=== PATIENT | male | born 1940 | race Caucasian/White ===

== ENCOUNTER → 2016-12-04 | Outpatient (CLI) | payer MEDICARE ==
[~2016-12-04] MED LIST: ALLE180T33 PO; AMIO20TA PO; ASPI81TA85 PO; BUPR100T6 PO; BUPR150T3 PO; BUPR300T34 PO; CEPH500C PO; ELIQ5TAB PO; FLEEENE4 PR; INDO75CA PO; KETO0.4S OS; LACT20EL PO; LIPI20TA PO; LISI5TAB PO; LOPR50TA PO; LOSA100T36 PO; MAG400TA PO; MAGN400T5 PO; MILKSUS PO; MIRA3350 PO; MUPI2OI EXT; NORC5TAB PO; NYST50SS SS; OCUVTAB4 PO; OMEP20CA3 PO; OMEP40CA2 PO; PACE400T PO; PREDOPD OS; SENO8.6T2 PO; SING5CHW PO; TRIA55SP; TYLE325T5 PO; ULTR50TA PO; VICO5TAB16 PO; VITA100037 PO; VITA200038 PO; VITA250L PO; VITA500T3 PO; XARE20TA PO; ZITH250T PO; ZOFR20TA PO
[2016-12-04 18:37] LABS: ALBUMIN 3.7 GM/DL (3.2-5.2); ALBUMIN/GLOBULIN RATIO 0.93 (1.00-1.93); ALKALINE PHOSPHATASE 97 U/L (45-117); ALT/SGPT 17 U/L (12-78); ANION GAP 10 MEQ/L (8-16); AST/SGOT 19 U/L (15-37); BILIRUBIN,TOTAL 1.3 MG/DL (0.2-1.0); BLOOD UREA NITROGEN 11 MG/DL (7-18); CALCIUM LEVEL 9.2 MG/DL (8.8-10.2); CARBON DIOXIDE LEVEL 29 MEQ/L (21-32); CHLORIDE LEVEL 106 MEQ/L (98-107); CHOLESTEROL LEVEL 132 MG/DL (<200); CREATININE FOR GFR 1.12 MG/DL (0.70-1.30); GLOMERULAR FILTRATION RATE > 60.0 (>42); GLUCOSE, FASTING 111 MG/DL (83-110); POTASSIUM SERUM 4.8 MEQ/L (3.5-5.1); SODIUM LEVEL 145 MEQ/L (136-145); TOTAL PROTEIN 7.7 GM/DL (6.4-8.2); TRIGLYCERIDES LEVEL 69 MG/DL (<150); URIC ACID 7.3 MG/DL (3.5-7.2)
== END ==
LOC: M WUC 11:14
PROVIDERS: ATTEND Internal Medicine
DX: M10.9 Gout, unspecified (principal); E78.00 Pure hypercholesterolemia, unspecified

== ENCOUNTER → 2016-12-04 | Outpatient (CLI) | payer MEDICARE ==
[2016-12-04 18:30] LABS: BASO % 0.4 % (0.0-1.0); EOS # 0.1 K/mm3 (0.0-0.50); EOS % 1.3 % (0.0-3.0); LARGE UNSTAINED CELL # 0.3 K/mm3 (0.0-0.4); LARGE UNSTAINED CELL % 3.7 % (0.0-4.0); LYMPH # 2.3 K/mm3 (1.5-4.5); LYMPH % 30.7 % (24.0-44.0); MEAN CORPUSCULAR HEMOGLOBIN 31.2 pg (27.0-33.0); MEAN CORPUSCULAR HGB CONC 33.7 g/dl (32.0-36.5); MEAN CORPUSCULAR VOLUME 92.7 fl (80.0-96.0); MONO # 0.5 K/mm3 (0.0-0.8); MONO % 7.6 % (0.0-5.0); NEUTROPHILS # 3.8 K/mm3 (1.8-7.7); NEUTROPHILS % 56.3 % (36.0-66.0); PLATELET COUNT, AUTOMATED 173 k/mm3 (150-450); RED CELL DISTRIBUTION WIDTH 13.2 % (11.5-14.5); WHITE BLOOD COUNT 6.7 K/mm3 (4.0-10.0)
[2016-12-04 18:34] LABS: ALBUMIN 3.6 GM/DL (3.2-5.2); ALKALINE PHOSPHATASE 94 U/L (45-117); ALT/SGPT 17 U/L (12-78); ANION GAP 12 MEQ/L (8-16); AST/SGOT 20 U/L (15-37); BILIRUBIN,TOTAL 1.2 MG/DL (0.2-1.0); BLOOD UREA NITROGEN 11 MG/DL (7-18); CARBON DIOXIDE LEVEL 27 MEQ/L (21-32); CHLORIDE LEVEL 106 MEQ/L (98-107); CREATININE FOR GFR 1.09 MG/DL (0.70-1.30); GLOMERULAR FILTRATION RATE > 60.0 (>42); GLUCOSE, FASTING 109 MG/DL (83-110); POTASSIUM SERUM 4.2 MEQ/L (3.5-5.1); SODIUM LEVEL 145 MEQ/L (136-145); TOTAL PROTEIN 7.6 GM/DL (6.4-8.2)
[2016-12-06 12:00] LABS: ALBUMIN 3.88 GM/DL (3.29-5.55); GAMMA GLOBULIN % 22.2 % (11.1-18.8)
[2016-12-07 00:10] LABS: FREE KAPPA LIGHT CHAINS SERUM 16.66 mg/L (3.30-19.40); FREE LAMBDA LIGHT CHAINS SERUM 79.63 mg/L (5.71-26.30); KAPPA/LAMBDA RATIO SERUM 0.21 (0.26-1.65)
== END ==
LOC: M WUC 11:20
PROVIDERS: ATTEND Internal Medicine Medical Oncology
DX: M10.9 Gout, unspecified (principal); E78.00 Pure hypercholesterolemia, unspecified; Z85.828 Personal history of other malignant neoplasm of skin

== ENCOUNTER → 2016-12-21 | Outpatient (CLI) | payer MEDICARE ==
[~2016-12-21] MED LIST changes: +NORC1TAB4 PO; -NORC5TAB PO
--- NOTE | 2016-12-21 14:10 | REP ---
Clinical: Chest pain . Comparison: 10/26/2015 . Technique: PA and lateral. Findings: The mediastinum and cardiac silhouette are normal/stable. Calcified hilar lymph nodes noted. The lung hernandez are clear and without acute consolidation, effusion, or pneumothorax. The skeletal structures are intact and normal. Impression: 1. No acute cardiopulmonary process. Signed by Christian Whitlock MD 12/21/2016 02:01 P
--- NOTE | 2016-12-21 15:26 | REP ---
VENTILATION-PERFUSION LUNG SCAN: 12/21/2016 CLINICAL HISTORY: Dyspnea, evaluate for pulmonary emboli. COMPARISON: Chest x-ray 12/21/2016, 10/26/2015 CT chest 02/04/2009. TECHNIQUE: The patient received 1 mCi technetium 99m DTPA aerosol for ventilation followed by 5.2 mCi technetium 99m MAA via an IV for perfusion phases of imaging. The standard eight projections for each were obtained. FINDINGS: The anterior and posterior perfusion images conform to the size and shape of the lungs on chest x-ray. There are some small matched defects in the parenchyma bilaterally with the ventilation defect larger than the perfusion defect in every case. No mismatched defects. Some central tracer deposition in the ventilation phase images consistent with COPD is noted. No other findings. IMPRESSION: 1. Using revised PIOPED lung scan interpretation criteria, this study is low probability for pulmonary thromboembolism. Signed by Franklin Ford MD 12/21/2016 08:14 P
== END ==
LOC: M RAD 13:32
PROVIDERS: ATTEND Internal Medicine Pulmonary Disease
DX: I26.99 Other pulmonary embolism without acute cor pulmonale (principal)
CPT/HCPCS: 71020; 78582; A9540; A9567

== ENCOUNTER → 2017-03-25 | Outpatient (REF) | payer MEDICARE ==
[~2017-03-25] MED LIST changes: -SENO8.6T2 PO; +SENO8.6T5 PO; -ULTR50TA PO; +ULTR50TA8 PO
[2017-03-25 19:29] LABS: MEAN CORPUSCULAR HEMOGLOBIN 33.2 pg (27.0-33.0); MEAN CORPUSCULAR HGB CONC 34.6 g/dl (32.0-36.5); RED CELL DISTRIBUTION WIDTH 12.8 % (11.5-14.5)
[2017-03-25 21:28] LABS: ALBUMIN 3.9 GM/DL (3.2-5.2); ALBUMIN/GLOBULIN RATIO 0.95 (1.00-1.93); ALKALINE PHOSPHATASE 91 U/L (45-117); ALT/SGPT 26 U/L (12-78); ANION GAP 9 MEQ/L (8-16); AST/SGOT 28 U/L (15-37); BILIRUBIN,TOTAL 1.3 MG/DL (0.2-1.0); BLOOD UREA NITROGEN 12 MG/DL (7-18); CALCIUM LEVEL 9.5 MG/DL (8.8-10.2); CARBON DIOXIDE LEVEL 28 MEQ/L (21-32); CHLORIDE LEVEL 105 MEQ/L (98-107); GLOMERULAR FILTRATION RATE > 60.0 (>42); GLUCOSE, FASTING 83 MG/DL (83-110); SODIUM LEVEL 142 MEQ/L (136-145); URIC ACID 7.3 MG/DL (3.5-7.2)
== END ==
LOC: M SFHCPLAZ 14:59
PROVIDERS: ATTEND Internal Medicine
DX: R06.09 Other forms of dyspnea (principal); I48.2 Chronic atrial fibrillation; R73.01 Impaired fasting glucose; R23.2 Flushing; M10.9 Gout, unspecified; Z85.46 Personal history of malignant neoplasm of prostate
CPT/HCPCS: 36415; 80053; 83036; 84153; 84443; 84550; 85027; 90715; G0463

== ENCOUNTER → 2017-10-04 | Outpatient (CLI) | payer MEDICARE ==
[2017-10-04 11:43] LABS: HEMATOCRIT 48.9 % (42.0-52.0); HEMOGLOBIN 16.6 g/dl (14.0-18.0); MEAN CORPUSCULAR HEMOGLOBIN 31.5 pg (27.0-33.0); MEAN CORPUSCULAR HGB CONC 33.9 g/dl (32.0-36.5); MEAN CORPUSCULAR VOLUME 92.8 fl (80.0-96.0); PLATELET COUNT, AUTOMATED 184 10^3/uL (150-450); RED BLOOD COUNT 5.27 10^6/uL (4.30-6.10); RED CELL DISTRIBUTION WIDTH 13.2 % (11.5-14.5); WHITE BLOOD COUNT 7.9 10^3/uL (4.0-10.0)
[2017-10-04 12:02] LABS: ALBUMIN 3.7 GM/DL (3.2-5.2); ALBUMIN/GLOBULIN RATIO 0.93 (1.00-1.93); ALKALINE PHOSPHATASE 84 U/L (45-117); ALT/SGPT 28 U/L (12-78); ANION GAP 5 MEQ/L (8-16); AST/SGOT 30 U/L (7-37); BILIRUBIN,TOTAL 1.3 MG/DL (0.2-1.0); BLOOD UREA NITROGEN 18 MG/DL (7-18); CALCIUM LEVEL 9.2 MG/DL (8.8-10.2); CARBON DIOXIDE LEVEL 32 MEQ/L (21-32); CHLORIDE LEVEL 105 MEQ/L (98-107); CHOLESTEROL LEVEL 172 MG/DL (<200); CHOLESTEROL RISK RATIO 3.127 (<5); CREATININE FOR GFR 1.25 MG/DL (0.70-1.30); GLOMERULAR FILTRATION RATE 59.5 (>42); GLUCOSE, FASTING 137 MG/DL (83-110); HDL CHOLESTEROL 55 MG/DL (>40); LDL CHOLESTEROL 99.8 MG/DL (<100); MAGNESIUM LEVEL 2.1 MG/DL (1.8-2.4); NON-HDL-C 117 MG/DL; POTASSIUM SERUM 4.9 MEQ/L (3.5-5.1); SODIUM LEVEL 142 MEQ/L (136-145); TOTAL PROTEIN 7.7 GM/DL (6.4-8.2); TRIGLYCERIDES LEVEL 86 MG/DL (<150); URIC ACID 8.3 MG/DL (3.5-7.2)
[2017-10-04 12:16] LABS: ESTIMATED AVERAGE GLUCOSE 128 MG/DL (60-110); HEMOGLOBIN A1c 6.1 %
== END ==
LOC: M WUC 09:43
DX: R06.09 Other forms of dyspnea (principal); R73.01 Impaired fasting glucose; E78.00 Pure hypercholesterolemia, unspecified; I48.2 Chronic atrial fibrillation; M10.9 Gout, unspecified
CPT/HCPCS: 83735

== ENCOUNTER → 2018-01-07 | Outpatient (REF) | payer MEDICARE | LOC: M LAB REF 12:08 | DX: D04.4 Carcinoma in situ of skin of scalp and neck (principal) | CPT/HCPCS: 88305 ==

== ENCOUNTER → 2018-01-29 | Outpatient (REF) | payer MEDICARE, OTHER ==
[2018-01-29 17:58] LABS: TOTAL PROTEIN 7.9 GM/DL (6.4-8.2)
[2018-01-30 10:25] LABS: ALBUMIN 4.16 GM/DL (3.29-5.55); ALBUMIN % 52.6 % (55.8-66.1); ALPHA-1-GLOBULIN % 3.6 % (2.9-4.9); ALPHA-1-GLOBULINS 0.28 GM/DL (0.17-0.41); ALPHA-2-GLOBULINS 0.96 GM/DL (0.42-0.99); ALPHA-2-GLOBULINS % 12.1 % (7.1-11.8); BETA-1-GLOBULINS 0.44 GM/DL (0.28-0.60); BETA-1-GLOBULINS % 5.6 % (4.7-7.2); GAMMA GLOBULIN % 21.1 % (11.1-18.8); GAMMA GLOBULINS 1.67 GM/DL (0.65-1.58)
[2018-02-01 00:06] LABS: FREE LAMBDA LIGHT CHAINS SERUM 83.2 mg/L (5.7-26.3); KAPPA/LAMBDA RATIO SERUM 0.18 (0.26-1.65)
[2018-02-01 00:06] LABS: BETA 2 MICROGLOBULIN 2.6 mg/L (0.6-2.4)
== END ==
LOC: M LAB REF 16:48
DX: D47.2 Monoclonal gammopathy (principal)
CPT/HCPCS: 84165

== ENCOUNTER → 2018-04-08 | Outpatient (CLI) | payer MEDICARE ==
[2018-04-08 17:08] LABS: HEMATOCRIT 49.7 % (42.0-52.0); HEMOGLOBIN 16.7 g/dl (13.5-17.5); MEAN CORPUSCULAR HEMOGLOBIN 32.1 pg (27.0-33.0); MEAN CORPUSCULAR HGB CONC 33.6 g/dl (32.0-36.5); MEAN CORPUSCULAR VOLUME 95.4 fl (80.0-96.0); PLATELET COUNT, AUTOMATED 184 10^3/uL (150-450); RED BLOOD COUNT 5.21 10^6/uL (4.30-6.10); RED CELL DISTRIBUTION WIDTH 13.4 % (11.5-14.5); WHITE BLOOD COUNT 7.6 10^3/uL (4.0-10.0)
[2018-04-08 17:34] LABS: ESTIMATED AVERAGE GLUCOSE 137 MG/DL (60-110); HEMOGLOBIN A1c 6.4 %
[2018-04-08 17:39] LABS: ALBUMIN 3.4 GM/DL (3.2-5.2); ALBUMIN/GLOBULIN RATIO 0.83 (1.00-1.93); ALKALINE PHOSPHATASE 80 U/L (45-117); ALT/SGPT 36 U/L (12-78); ANION GAP 9 MEQ/L (8-16); AST/SGOT 31 U/L (7-37); BILIRUBIN,TOTAL 1.2 MG/DL (0.2-1.0); BLOOD UREA NITROGEN 12 MG/DL (7-18); CALCIUM LEVEL 9.4 MG/DL (8.8-10.2); CARBON DIOXIDE LEVEL 28 MEQ/L (21-32); CHLORIDE LEVEL 106 MEQ/L (98-107); CHOLESTEROL LEVEL 164 MG/DL (<200); CHOLESTEROL RISK RATIO 2.779 (<5); CREATININE FOR GFR 1.25 MG/DL (0.70-1.30); GLOMERULAR FILTRATION RATE 59.3 (>42); GLUCOSE, FASTING 115 MG/DL (70-100); HDL CHOLESTEROL 59 MG/DL (>40); LDL CHOLESTEROL 89.6 MG/DL (<100); NON-HDL-C 105 MG/DL; POTASSIUM SERUM 4.4 MEQ/L (3.5-5.1); PROSTATIC SPECIFIC AG MONITOR < 0.01 NG/ML (< 4.0); SODIUM LEVEL 143 MEQ/L (136-145); TOTAL PROTEIN 7.5 GM/DL (6.4-8.2); TRIGLYCERIDES LEVEL 77 MG/DL (<150)
[2018-04-08 18:04] LABS: MAU/CREAT RATIO 6.8 MCG/MG (0.0-30.0)
[2018-04-09 12:36] LABS: ALBUMIN 4.02 GM/DL (3.29-5.55); ALBUMIN % 53.6 % (55.8-66.1); ALPHA-1-GLOBULIN % 3.6 % (2.9-4.9); ALPHA-1-GLOBULINS 0.27 GM/DL (0.17-0.41); ALPHA-2-GLOBULINS 0.89 GM/DL (0.42-0.99); ALPHA-2-GLOBULINS % 11.8 % (7.1-11.8); BETA-1-GLOBULINS 0.44 GM/DL (0.28-0.60); BETA-1-GLOBULINS % 5.9 % (4.7-7.2); BETA-2-GLOBULINS % 5.3 % (3.2-6.5); GAMMA GLOBULIN % 19.8 % (11.1-18.8); GAMMA GLOBULINS 1.49 GM/DL (0.65-1.58)
== END ==
LOC: M WUC 11:09
DX: D47.2 Monoclonal gammopathy (principal); Z85.46 Personal history of malignant neoplasm of prostate; E78.00 Pure hypercholesterolemia, unspecified; R73.01 Impaired fasting glucose; F34.1 Dysthymic disorder; I48.2 Chronic atrial fibrillation
CPT/HCPCS: 84165

== ENCOUNTER → 2018-10-03 | Outpatient (REF) | payer MEDICARE ==
[~2018-10-03] MED LIST changes: +COLC1TAB13; -LOSA100T36 PO; +LOSA100T50 PO; +MILK120011 PO; -MILKSUS PO; +RANI300C; +ZADI1DRO; -ZOFR20TA PO; +ZOFR4TAB16 PO
[2018-10-03 17:05] LABS: MALB URINE SIEMENS 30.9 MG/L; MAU/CREAT RATIO 14.4 MCG/MG (0.0-30.0)
[2018-10-03 17:48] LABS: HEMATOCRIT 50.4 % (42.0-52.0); HEMOGLOBIN 16.9 g/dl (13.5-17.5); MEAN CORPUSCULAR HEMOGLOBIN 31.6 pg (27.0-33.0); MEAN CORPUSCULAR HGB CONC 33.5 g/dl (32.0-36.5); MEAN CORPUSCULAR VOLUME 94.4 fl (80.0-96.0); PLATELET COUNT, AUTOMATED 181 10^3/uL (150-450); RED BLOOD COUNT 5.34 10^6/uL (4.30-6.10); WHITE BLOOD COUNT 6.9 10^3/uL (4.0-10.0)
[2018-10-03 17:54] LABS: ALBUMIN 3.5 GM/DL (3.2-5.2); ALT/SGPT 23 U/L (12-78); BILIRUBIN,TOTAL 0.9 MG/DL (0.2-1.0); BLOOD UREA NITROGEN 10 MG/DL (7-18); C REACTIVE PROTEIN QUANTITATIV 0.49 MG/DL (0.00-0.30); CALCIUM LEVEL 9.4 MG/DL (8.8-10.2); CARBON DIOXIDE LEVEL 29 MEQ/L (21-32); CHLORIDE LEVEL 105 MEQ/L (98-107); CHOLESTEROL LEVEL 160 MG/DL (<200); CREATININE FOR GFR 1.13 MG/DL (0.70-1.30); GLOMERULAR FILTRATION RATE > 60.0 (>42); GLUCOSE, FASTING 201 MG/DL (70-100); HDL CHOLESTEROL 50 MG/DL (>40); LDL CHOLESTEROL 85 MG/DL (<100); NON-HDL-C 110 MG/DL; POTASSIUM SERUM 4.4 MEQ/L (3.5-5.1); SODIUM LEVEL 142 MEQ/L (136-145); TOTAL PROTEIN 7.5 GM/DL (6.4-8.2); TRIGLYCERIDES LEVEL 126 MG/DL (<150); URIC ACID 7.1 MG/DL (3.5-7.2)
[2018-10-03 18:23] LABS: HEMOGLOBIN A1c 6.4 %
[2018-10-03 19:14] LABS: ERYTHROCYTE SEDIMENTATION RATE 7 mm/hr (0-20)
== END ==
LOC: M SFHCCLAY 10:42
PROVIDERS: ATTEND Internal Medicine
DX: D47.2 Monoclonal gammopathy (principal); Z86.718 Personal history of other venous thrombosis and embolism; M06.4 Inflammatory polyarthropathy; R73.01 Impaired fasting glucose; E78.00 Pure hypercholesterolemia, unspecified; M10.9 Gout, unspecified

== ENCOUNTER → 2018-11-04 | Outpatient (REF) | payer MEDICARE ==
[2018-11-04 16:45] LABS: BASO % 0.5 % (0.0-1.0); EOS # 0.1 10^3/uL (0.0-0.50); EOS % 1.7 % (0.0-3.0); HEMATOCRIT 51.7 % (42.0-52.0); HEMOGLOBIN 17.2 g/dl (13.5-17.5); LYMPH # 2.3 10^3/uL (1.5-4.5); LYMPH % 31.1 % (24.0-44.0); MEAN CORPUSCULAR HEMOGLOBIN 31.4 pg (27.0-33.0); MEAN CORPUSCULAR HGB CONC 33.3 g/dl (32.0-36.5); MEAN CORPUSCULAR VOLUME 94.3 fl (80.0-96.0); MONO # 0.8 10^3/uL (0.0-0.8); NEUTROPHILS # 4.2 10^3/uL (1.8-7.7); NEUTROPHILS % 56.3 % (36.0-66.0); PLATELET COUNT, AUTOMATED 182 10^3/uL (150-450); RED BLOOD COUNT 5.48 10^6/uL (4.30-6.10); WHITE BLOOD COUNT 7.5 10^3/uL (4.0-10.0)
[2018-11-04 16:49] LABS: BLOOD UREA NITROGEN 14 MG/DL (7-18); CALCIUM LEVEL 9.2 MG/DL (8.8-10.2); CARBON DIOXIDE LEVEL 31 MEQ/L (21-32); CHLORIDE LEVEL 103 MEQ/L (98-107); CREATININE FOR GFR 1.13 MG/DL (0.70-1.30); GLOMERULAR FILTRATION RATE > 60.0 (>42); GLUCOSE, FASTING 124 MG/DL (70-100); POTASSIUM SERUM 4.4 MEQ/L (3.5-5.1); SODIUM LEVEL 141 MEQ/L (136-145)
== END ==
LOC: M SFHCPLAZ 09:40 → M SFHCCLAY 09:42
PROVIDERS: ATTEND Internal Medicine
DX: Z01.818 Encounter for other preprocedural examination (principal)

== ENCOUNTER → 2019-01-27 | Outpatient (REF) | payer MEDICARE, OTHER ==
[~2019-01-27] MED LIST changes: +AMIO200T10 PO; -AMIO20TA PO; +ATOR1TAB21 PO; +LACT15SO PO; -LACT20EL PO; +MUPI1OIN2 EXT; -MUPI2OI EXT; -NORC1TAB4 PO; +NORC1TAB7 PO; -VICO5TAB16 PO; +VICO5TAB17 PO
[2019-01-27 17:58] LABS: HEMATOCRIT 51.3 % (42.0-52.0); HEMOGLOBIN 17.1 g/dl (13.5-17.5); MEAN CORPUSCULAR HEMOGLOBIN 31.3 pg (27.0-33.0); MEAN CORPUSCULAR HGB CONC 33.3 g/dl (32.0-36.5); PLATELET COUNT, AUTOMATED 201 10^3/uL (150-450); RED BLOOD COUNT 5.46 10^6/uL (4.30-6.10)
[2019-01-27 18:07] LABS: ALBUMIN 3.8 GM/DL (3.2-5.2); ALT/SGPT 27 U/L (12-78); BILIRUBIN,TOTAL 0.8 MG/DL (0.2-1.0); BLOOD UREA NITROGEN 21 MG/DL (7-18); CALCIUM LEVEL 9.5 MG/DL (8.8-10.2); CARBON DIOXIDE LEVEL 28 MEQ/L (21-32); CHLORIDE LEVEL 106 MEQ/L (98-107); CREATININE FOR GFR 1.32 MG/DL (0.70-1.30); GLOMERULAR FILTRATION RATE 55.7 (>42); GLUCOSE, FASTING 147 MG/DL (70-100); POTASSIUM SERUM 4.2 MEQ/L (3.5-5.1); SODIUM LEVEL 142 MEQ/L (136-145)
[2019-01-29 10:56] LABS: ALBUMIN 4.18 GM/DL (3.29-5.55); ALBUMIN % 52.3 % (55.8-66.1); ALPHA-1-GLOBULIN % 3.3 % (2.9-4.9); ALPHA-1-GLOBULINS 0.26 GM/DL (0.17-0.41); ALPHA-2-GLOBULINS 1.04 GM/DL (0.42-0.99); BETA-1-GLOBULINS 0.43 GM/DL (0.28-0.60); BETA-1-GLOBULINS % 5.4 % (4.7-7.2); BETA-2-GLOBULINS 0.43 GM/DL (0.19-0.55); BETA-2-GLOBULINS % 5.4 % (3.2-6.5); GAMMA GLOBULIN % 20.6 % (11.1-18.8); GAMMA GLOBULINS 1.65 GM/DL (0.65-1.58)
[2019-01-30 08:06] LABS: BETA 2 MICROGLOBULIN 2.1 mg/L (0.6-2.4); FREE LAMBDA LIGHT CHAINS SERUM 79.4 mg/L (5.7-26.3); KAPPA/LAMBDA RATIO SERUM 0.25 (0.26-1.65)
== END ==
LOC: M LABDRAWC 16:39
PROVIDERS: ATTEND Internal Medicine Medical Oncology
DX: Z79.899 Other long term (current) drug therapy (principal)

== ENCOUNTER → 2019-02-05 | Outpatient (REF) | payer MEDICARE ==
[2019-02-05 16:58] LABS: HEMATOCRIT 50.2 % (42.0-52.0); HEMOGLOBIN 16.9 g/dl (13.5-17.5); MEAN CORPUSCULAR HGB CONC 33.7 g/dl (32.0-36.5); MEAN CORPUSCULAR VOLUME 95.1 fl (80.0-96.0); PLATELET COUNT, AUTOMATED 198 10^3/uL (150-450); RED BLOOD COUNT 5.28 10^6/uL (4.30-6.10)
[2019-02-05 17:06] LABS: ALBUMIN 3.7 GM/DL (3.2-5.2); ALT/SGPT 26 U/L (12-78); BILIRUBIN,TOTAL 1.1 MG/DL (0.2-1.0); BLOOD UREA NITROGEN 14 MG/DL (7-18); CARBON DIOXIDE LEVEL 27 MEQ/L (21-32); CHLORIDE LEVEL 106 MEQ/L (98-107); CHOLESTEROL LEVEL 189 MG/DL (<200); CREATININE FOR GFR 1.19 MG/DL (0.70-1.30); GLOMERULAR FILTRATION RATE > 60.0 (>42); GLUCOSE, FASTING 126 MG/DL (70-100); HDL CHOLESTEROL 54 MG/DL (>40); LDL CHOLESTEROL 112 MG/DL (<100); NON-HDL-C 135 MG/DL; POTASSIUM SERUM 4.1 MEQ/L (3.5-5.1); PROSTATIC SPECIFIC AG MONITOR < 0.01 NG/ML (< 4.00); SODIUM LEVEL 142 MEQ/L (136-145); TOTAL PROTEIN 7.5 GM/DL (6.4-8.2); TRIGLYCERIDES LEVEL 117 MG/DL (<150); URIC ACID 8.5 MG/DL (3.5-7.2)
[2019-02-05 17:20] LABS: HEMOGLOBIN A1c 6.4 %
== END ==
LOC: M SFHCCLAY 10:06
PROVIDERS: ATTEND Internal Medicine
DX: D47.2 Monoclonal gammopathy (principal); R73.01 Impaired fasting glucose; E78.00 Pure hypercholesterolemia, unspecified; M10.9 Gout, unspecified; Z86.718 Personal history of other venous thrombosis and embolism

== ENCOUNTER → 2019-03-06 | Outpatient (CLI) | payer MEDICARE ==
--- NOTE | 2019-03-06 16:06 | REP ---
MR cervical spine without contrast History: Degenerative disc disease Comparison: 04/21/2015 Facet hypertrophy is present on the left at the C2-3 level. This produces minimal narrowing of the left C2 neural foramen. The right C2 neural foramen is patent. A disc bulge is present at the C3-4 level. There is mild effacement of the thecal sac without spinal cord compression. Bilateral uncinate process and right facet hypertrophy are present. These findings produce moderate and mild narrowing of the right and left C3 neural foramina respectively. A disc bulge with associated osteophyte formation is present at the C4-5 level. There is moderate effacement of the thecal sac without spinal cord compression. Bilateral uncinate process and right facet hypertrophy are present. These findings produce moderate and minimal narrowing of the right and left C4 neural foramina respectively. A disc bulge with associated osteophyte formation is present at the C5-6 level. There is moderate effacement of the thecal sac without spinal cord compression. Bilateral uncinate process hypertrophy is present. This produces moderate narrowing of the C5 neural foramina. A disc bulge with associated osteophyte formation is present at the C6-7 level. There is minimal effacement of the thecal sac without spinal cord compression. Bilateral uncinate process hypertrophy is present. This produces minimal and mild narrowing of the right and left C6 neural foramina respectively. There is no other disc bulge or herniation. The remaining neural foramina are patent. The spinal cord is normal in signal intensity. The C4-5 through C6-7 intervertebral discs are decreased in height consistent with disc degeneration. Normal signal intensity is present in the cervical vertebral bodies. Impression: There is cervical spondylosis at the C2-3 through C6-7 levels without spinal cord compression. There is no significant change compared to the previous study. Electronically Signed by Gurjit Dickinson MD 03/06/2019 03:57 P
--- NOTE | 2019-03-06 16:18 | REP ---
MR lumbar spine without contrast History: Degenerative disc disease Comparison: 04/21/2015 Decreased signal intensity on T2-weighted images is present in the lumbar intervertebral discs. The discs are decreased in height. These findings are consistent with disc degeneration. A disc bulge is present at the T12-L1 level. There is minimal effacement of the thecal sac without spinal cord compression. The T12 neural foramina are patent on sagittal images. A diffuse disc bulge is present at the L1-2 level. There is hypertrophy of the ligamenta flava and posterior articulating facets. These findings produce minimal central canal stenosis. The L1 nerves exit the neural foramina without compression. A diffuse disc bulge with associated osteophyte formation is present at the L2-3 level. There is hypertrophy of the ligamenta flava and posterior articulating facets. These findings produce mild central canal stenosis. The L2 nerves exit the neural foramina without compression. A diffuse disc bulge with associated osteophyte formation is present at the L3-4 level. There is hypertrophy of the ligamenta flava and posterior articulating facets. These findings produce moderate central canal stenosis. There is posterolateral displacement of the left L3 nerve distal to the neural foramen. The right L3 nerve exits the neural foramen without compression. A disc base disc bulge with associated osteophyte formation is present at in the L4-5 level. There is hypertrophy of the ligamenta flava and posterior articulating facets. These findings produce moderate central canal stenosis. The L4 nerves exit the neural foramina without compression. A diffuse disc bulge is present at the L5-L1 level. There is hypertrophy of the ligamenta flava and posterior articulating facets. These findings produce mild central canal stenosis. There is compression of the right L5 nerve in the neural foramen. The left L5 nerve exits the neural foramina without compression. The conus medullaris is normal in appearance terminating at the level of the T12-L1 intervertebral disc. A hemangioma is present in the L5 vertebral body. Diffuse heterogeneous increased signal intensity on T2-weighted images is present in the L1 vertebral body. This may represent a subacute fracture. There is no loss of vertebral body height. Increased signal intensity on T2-weighted images is present in the endplates of the L2-L5 vertebral bodies. This represents degenerative change. Impression: 1. Minimal central canal stenosis at the L1-2 level secondary to disc bulge, ligamentous and facet hypertrophy. This is a new finding. 2. Mild central canal stenosis at the L2-3 level secondary to disc bulge, ligamentous and facet hypertrophy, and osteophyte formation. 3. Moderate central canal stenosis at the L3-4 and L4-5 levels secondary to disc bulge, ligamentous and facet hypertrophy, and osteophyte formation. There has been progression of the canal stenosis at the L3-4 level. 4. Mild central canal stenosis at the L5-L1 level secondary to disc bulge ,ligamentous and facet hypertrophy. There is compression of the right L5 nerve in the neural foramen. Electronically Signed by Gurjit Dickinson MD 03/06/2019 04:10 P
== END ==
LOC: M PLARAD 12:52
PROVIDERS: ATTEND Internal Medicine
DX: M47.892 Other spondylosis, cervical region (principal); M50.21 Other cervical disc displacement, high cervical region; M50.221 Other cervical disc displacement at C4-C5 level; M50.222 Other cervical disc displacement at C5-C6 level; M50.223 Other cervical disc displacement at C6-C7 level; M50.30 Other cervical disc degeneration, unspecified cervical region; M51.36 Other intervertebral disc degeneration, lumbar region

== ENCOUNTER → 2019-05-18 | Outpatient (REF) | payer MEDICARE ==
[~2019-05-18] MED LIST changes: +CYAN500T8 PO; -VITA500T3 PO
[2019-05-18 11:39] LABS: HEMATOCRIT 48.8 % (42.0-52.0); HEMOGLOBIN 16.6 g/dl (13.5-17.5); MEAN CORPUSCULAR HEMOGLOBIN 31.8 pg (27.0-33.0); MEAN CORPUSCULAR VOLUME 93.5 fl (80.0-96.0); PLATELET COUNT, AUTOMATED 179 10^3/uL (150-450); RED BLOOD COUNT 5.22 10^6/uL (4.30-6.10); WHITE BLOOD COUNT 7.4 10^3/uL (4.0-10.0)
[2019-05-18 11:56] LABS: HEMOGLOBIN A1c 6.4 %
[2019-05-18 12:38] LABS: ALBUMIN 3.6 GM/DL (3.2-5.2); ALT/SGPT 34 U/L (12-78); BILIRUBIN,TOTAL 1.1 MG/DL (0.2-1.0); BLOOD UREA NITROGEN 15 MG/DL (7-18); CALCIUM LEVEL 9.5 MG/DL (8.8-10.2); CARBON DIOXIDE LEVEL 32 MEQ/L (21-32); CHLORIDE LEVEL 105 MEQ/L (98-107); CHOLESTEROL LEVEL 140 MG/DL (<200); CHOLESTEROL RISK RATIO 2.456 (<5); CREATININE FOR GFR 1.17 MG/DL (0.70-1.30); GLOMERULAR FILTRATION RATE > 60.0 (>35); GLUCOSE, FASTING 131 MG/DL (70-100); HDL CHOLESTEROL 57 MG/DL (>40); LDL CHOLESTEROL 67 MG/DL (<100); NON-HDL-C 83 MG/DL; POTASSIUM SERUM 4.1 MEQ/L (3.5-5.1); SODIUM LEVEL 143 MEQ/L (136-145); TOTAL PROTEIN 7.5 GM/DL (6.4-8.2); TRIGLYCERIDES LEVEL 82 MG/DL (<150); URIC ACID 7.5 MG/DL (3.5-7.2)
[2019-05-18 12:39] LABS: MALB URINE SIEMENS 55.8 MG/L; MAU/CREAT RATIO 19.7 MCG/MG (0.0-30.0)
== END ==
LOC: M SFHCCLAY 09:32
PROVIDERS: ATTEND Internal Medicine
DX: D47.2 Monoclonal gammopathy (principal); E78.00 Pure hypercholesterolemia, unspecified; R73.01 Impaired fasting glucose; M10.9 Gout, unspecified

== ENCOUNTER → 2019-10-02 | Outpatient (REF) | payer MEDICARE ==
[~2019-10-02] MED LIST changes: -BUPR300T34 PO; +BUPR300T92 PO; -OMEP40CA2 PO; +OMEP40CA97 PO
[2019-10-02 12:20] LABS: ALBUMIN 3.7 GM/DL (3.2-5.2); ALT/SGPT 35 U/L (12-78); BILIRUBIN,TOTAL 0.9 MG/DL (0.2-1.0); BLOOD UREA NITROGEN 13 MG/DL (7-18); CALCIUM LEVEL 9.6 MG/DL (8.8-10.2); CARBON DIOXIDE LEVEL 31 MEQ/L (21-32); CHLORIDE LEVEL 106 MEQ/L (98-107); CREATININE FOR GFR 1.14 MG/DL (0.70-1.30); GLOMERULAR FILTRATION RATE > 60.0 (>35); GLUCOSE, FASTING 116 MG/DL (70-100); POTASSIUM SERUM 5.1 MEQ/L (3.5-5.1); SODIUM LEVEL 143 MEQ/L (136-145); TOTAL PROTEIN 7.7 GM/DL (6.4-8.2)
[2019-10-02 12:38] LABS: HEMOGLOBIN A1c 6.6 %
== END ==
LOC: M SFHCCLAY 08:51
PROVIDERS: ATTEND Internal Medicine
DX: R73.01 Impaired fasting glucose (principal)

== ENCOUNTER 2019-11-29 14:51 | Emergency (ER) | payer MEDICARE, OTHER ==
[~2019-11-29] VITALS: Ht 188 cm; Wt 111.3 kg
[2019-11-29] MEDS ORDERED: PRES10CA2 (15:21)
[2019-11-29] MEDS ORDERED: MOTR200T44 PO (15:21)
[2019-11-29] MEDS ORDERED: HYDR-3713 (15:21)
[2019-11-29] MEDS ORDERED: NS 500 ML IV ONE (15:45)
--- NOTE | 2019-11-29 16:12 | REP ---
Right knee series: Four views. History: Redness and swelling. History of trauma. Findings: Four views of the right knee demonstrate right knee arthroplasty in place. There is mild diffuse osteopenia. There is no evidence of fracture or subluxation. There is nonarticular spurring on the superior pole the patella. No sunrise view. Impression: Diffuse osteopenia. Right knee arthroplasty. No acute bony abnormality. Electronically Signed by Jem Sanchez MD 11/29/2019 04:04 P
[2019-11-29 16:13] LABS: BASO # 0.1 10^3/uL (0.0-0.2); BASO % 0.5 % (0.0-1.0); EOS # 0.1 10^3/uL (0.0-0.5); EOS % 1.5 % (0.0-3.0); HEMATOCRIT 50.1 % (42.0-52.0); HEMOGLOBIN 17.1 g/dl (13.5-17.5); LYMPH # 1.9 10^3/uL (1.5-5.0); LYMPH % 20.9 % (24.0-44.0); MEAN CORPUSCULAR HEMOGLOBIN 31.6 pg (27.0-33.0); MEAN CORPUSCULAR HGB CONC 34.1 g/dl (32.0-36.5); MEAN CORPUSCULAR VOLUME 92.6 fl (80.0-96.0); MONO # 1.2 10^3/uL (0.0-0.8); MONO % 13.4 % (0.0-5.0); NEUTROPHILS # 5.9 10^3/uL (1.5-8.5); NEUTROPHILS % 63.3 % (36.0-66.0); PLATELET COUNT, AUTOMATED 183 10^3/uL (150-450); RED BLOOD COUNT 5.41 10^6/uL (4.30-6.10); WHITE BLOOD COUNT 9.3 10^3/uL (4.0-10.0)
[2019-11-29 16:25] LABS: INR 1.38; PARTIAL THROMBOPLASTIN TIME 28.6 SECONDS (25.0-38.4); PROTHROMBIN TIME 16.7 SECONDS (11.8-14.0)
[2019-11-29 16:36] LABS: C REACTIVE PROTEIN QUANTITATIV 9.22 MG/DL (0.00-0.30); CALCIUM LEVEL 9.3 MG/DL (8.8-10.2); CREATININE FOR GFR 1.31 MG/DL (0.70-1.30); POTASSIUM SERUM 4.1 MEQ/L (3.5-5.1)
[2019-11-29 17:16] LABS: ERYTHROCYTE SEDIMENTATION RATE 17 mm/hr (0-20)
[2019-11-29] MEDS ORDERED: ceFAZolin SOD 1 GM in D5W MINI-BAG PLUS 50 ML IV ONE (18:00)
[2019-11-29 19:02] VITALS: BP 173/92
[2019-11-29] MEDS ORDERED: KEFL500C17 PO (19:12)
== END 2019-11-29 19:38 | disposition home or self-care (01) ==
LOC: M ED 14:51
DX: L03.115 Cellulitis of right lower limb (principal); M85.851 Other specified disorders of bone density and structure, right thigh; Z96.651 Presence of right artificial knee joint; Z79.01 Long term (current) use of anticoagulants; Z79.899 Other long term (current) drug therapy; Z91.040 Latex allergy status; Z88.0 Allergy status to penicillin; Z88.2 Allergy status to sulfonamides; Z88.8 Allergy status to other drugs, medicaments and biological substances
CPT/HCPCS: 36415; 73564; 80048; 85025; 85610; 85652; 85730; 86140; 87040; 96365; 99284; J0690

== ENCOUNTER → 2019-12-02 | Outpatient (REF) | payer MEDICARE ==
[~2019-12-02] MED LIST changes: +HYDR-3713; +KEFL500C17 PO; +MOTR200T44 PO; +PRES10CA2
== END ==
LOC: M LAB REF 19:24
PROVIDERS: ATTEND Surgery
DX: L97.512 Non-pressure chronic ulcer of other part of right foot with fat layer exposed (principal)

== ENCOUNTER → 2020-01-29 | Outpatient (CLI) | payer MEDICARE, OTHER ==
[2020-01-29 18:43] LABS: HEMATOCRIT 52.1 % (42.0-52.0); HEMOGLOBIN 17.3 g/dl (13.5-17.5); MEAN CORPUSCULAR HEMOGLOBIN 31.7 pg (27.0-33.0); MEAN CORPUSCULAR HGB CONC 33.2 g/dl (32.0-36.5); MEAN CORPUSCULAR VOLUME 95.6 fl (80.0-96.0); PLATELET COUNT, AUTOMATED 189 10^3/uL (150-450); RED BLOOD COUNT 5.45 10^6/uL (4.30-6.10); WHITE BLOOD COUNT 9.2 10^3/uL (4.0-10.0)
[2020-01-29 19:14] LABS: BLOOD UREA NITROGEN 20 MG/DL (7-18); CALCIUM LEVEL 9.2 MG/DL (8.8-10.2); CARBON DIOXIDE LEVEL 30 MEQ/L (21-32); CHLORIDE LEVEL 104 MEQ/L (98-107); CREATININE FOR GFR 1.17 MG/DL (0.70-1.30); GLOMERULAR FILTRATION RATE > 60.0 (>35); GLUCOSE, FASTING 86 MG/DL (70-100); NT-PRO BNP 302 PG/ML (<450); POTASSIUM SERUM 4.6 MEQ/L (3.5-5.1); SODIUM LEVEL 140 MEQ/L (136-145)
== END ==
LOC: M PLALAB 15:40
PROVIDERS: ATTEND Physician Assistant
DX: R06.02 Shortness of breath (principal); I48.0 Paroxysmal atrial fibrillation

== ENCOUNTER → 2020-03-28 | Outpatient (REF) | payer MEDICARE ==
[~2020-03-28] MED LIST changes: +ALLE1TAB23 PO; +D31000TA2 PO; +MAGN400T2 PO; +ZOLO100T PO; +ZYLO300T6 PO; +[UNRECOGNIZED DRUG - CODE] PO
[2020-03-28 14:39] LABS: HEMATOCRIT 50.1 % (42.0-52.0); HEMOGLOBIN 16.9 g/dl (13.5-17.5); MEAN CORPUSCULAR HEMOGLOBIN 31.8 pg (27.0-33.0); MEAN CORPUSCULAR HGB CONC 33.7 g/dl (32.0-36.5); MEAN CORPUSCULAR VOLUME 94.4 fl (80.0-96.0); PLATELET COUNT, AUTOMATED 185 10^3/uL (150-450); RED BLOOD COUNT 5.31 10^6/uL (4.30-6.10); WHITE BLOOD COUNT 8.8 10^3/uL (4.0-10.0)
[2020-03-28 15:59] LABS: MALB URINE SIEMENS 53.7 MG/L; MAU/CREAT RATIO 34.6 MCG/MG (0.0-30.0)
[2020-03-28 16:07] LABS: ALBUMIN 3.5 GM/DL (3.2-5.2); ALT/SGPT 36 U/L (12-78); BILIRUBIN,TOTAL 1.1 MG/DL (0.2-1.0); BLOOD UREA NITROGEN 13 MG/DL (7-18); CALCIUM LEVEL 9.5 MG/DL (8.8-10.2); CARBON DIOXIDE LEVEL 30 MEQ/L (21-32); CHLORIDE LEVEL 104 MEQ/L (98-107); CHOLESTEROL LEVEL 170 MG/DL (<200); CHOLESTEROL RISK RATIO 3.269 (<5); CREATININE FOR GFR 1.15 MG/DL (0.70-1.30); GLOMERULAR FILTRATION RATE > 60.0 (>35); GLUCOSE, FASTING 109 MG/DL (70-100); HDL CHOLESTEROL 52 MG/DL (>40); LDL CHOLESTEROL 102 MG/DL (<100); NON-HDL-C 118 MG/DL; POTASSIUM SERUM 4.6 MEQ/L (3.5-5.1); SODIUM LEVEL 139 MEQ/L (136-145); TOTAL PROTEIN 7.8 GM/DL (6.4-8.2); TRIGLYCERIDES LEVEL 79 MG/DL (<150); URIC ACID 8.8 MG/DL (3.5-7.2)
[2020-03-28 19:20] LABS: HEMOGLOBIN A1c 6.8 %
== END ==
LOC: M PLALAB 12:29
PROVIDERS: ATTEND Internal Medicine
DX: Z85.820 Personal history of malignant melanoma of skin (principal); E78.00 Pure hypercholesterolemia, unspecified; R73.01 Impaired fasting glucose; M10.9 Gout, unspecified

== ENCOUNTER → 2020-06-03 | Outpatient (CLI) | payer MEDICARE | LOC: M LABSMTC 12:13 | PROVIDERS: ATTEND Anesthesiology | DX: Z11.59 Encounter for screening for other viral diseases (principal) | CPT/HCPCS: C9803; U0003 ==

== ENCOUNTER 2020-06-08 12:04 | Day surgery (SDC) | payer MEDICARE ==
[~2020-06-08] VITALS: Ht 188 cm; Wt 111.1 kg
[~2020-06-08 12:04] MED LIST changes: +LIDOCAINE 1% MDV 20ML VIAL As Ordered ONE; +LR 1,000 ML IV ONE; +ceFAZolin SOD 2 GM in IV 1 EA IV ONE
[2020-06-08] MEDS ORDERED: ceFAZolin 2 GM/D5W 50 ML IV BAG (J0690 PER 500MG) As Ordered ONE (12:38)
[2020-06-08] MEDS ORDERED: fentaNYL 100 MCG/2 ML INJECTION (J3010) As Ordered ONE (13:59)
[2020-06-08] MEDS ORDERED: propofoL 200 MG/20 ML VIAL As Ordered ONE (13:59)
[2020-06-08 15:00] VITALS: BP 158/77
--- NOTE | 2020-06-20 15:19 | RO ---
DATE OF OPERATION: 06/08/2020 PREOPERATIVE DIAGNOSIS: Cardiac rhythm monitor in situ. PREOPERATIVE DIAGNOSIS: Cardiac rhythm monitor in situ. FINDINGS: Cardiac rhythm monitor in situ. PROCEDURE PERFORMED: Explantation of old implantable loop recorder (subcutaneous cardiac rhythm monitor). SURGEON: Jeovany Tran M.D. BLOCK CHOPPER HAND: None. ANESTHESIA: Lidocaine 1% local/monitored anesthetic care. SPECIMENS: Old Medtronic Reveal LINQ implantable radiation monitor. ESTIMATED BLOOD LOSS: Less than 1 mL. BLOOD PRODUCTS: No blood products were placed. DRAINS: None. COMPLICATIONS: None. PROCEDURE DESCRIPTION: The patient was prepped and draped over the left anterior chest and sternum. An incision was made with a #15 blade over the medial aspect of the implanted loop recorder and the blade was used to dissect down to the level of the anterior surface of the implantable loop recorder. Using a combination of two snaps and a 15-blade, the medial end of the loop recorder was freed up and then the snap was used to pull the implant loop recorder out of the pocket. A single 2-0 Vicryl suture was used to approximate the more deep layer. The skin was then approximated with subcutaneous stitch consisting of 4-0 Biosyn with the ends of the stitch protruding one cm from either end of the incision line. Next, three layers of Dermabond was applied. The 4-0 Biosyn suture was then pulled through the incision line and removed entirely. The patient tolerated the procedure well without any immediate complications. [facility]
== END 2020-06-08 15:15 | disposition home or self-care (01) ==
LOC: M SDC 12:04
PROVIDERS: ATTEND Internal Medicine Cardiovascular Disease
DX: Z45.09 Encounter for adjustment and management of other cardiac device (principal); R01.1 Cardiac murmur, unspecified; I48.91 Unspecified atrial fibrillation; I10 Essential (primary) hypertension; E78.00 Pure hypercholesterolemia, unspecified; K21.9 Gastro-esophageal reflux disease without esophagitis; M10.9 Gout, unspecified; F32.9 Major depressive disorder, single episode, unspecified; Z86.73 Personal history of transient ischemic attack (TIA), and cerebral infarction without residual deficits; Z85.46 Personal history of malignant neoplasm of prostate; Z91.041 Radiographic dye allergy status; Z88.0 Allergy status to penicillin; Z88.2 Allergy status to sulfonamides; Z88.8 Allergy status to other drugs, medicaments and biological substances; Z79.01 Long term (current) use of anticoagulants; Z79.899 Other long term (current) drug therapy
CPT/HCPCS: 33286; J0690; J3010

== ENCOUNTER → 2020-09-21 | Outpatient (CLI) | payer MEDICARE ==
[~2020-09-21] MED LIST changes: +COLC0.6T47; -COLC1TAB13; +CYAN500T14 PO; -CYAN500T8 PO; -LIDOCAINE 1% MDV 20ML VIAL As Ordered ONE; -LR 1,000 ML IV ONE; -ceFAZolin SOD 2 GM in IV 1 EA IV ONE
[2020-09-21 16:30] LABS: BASO # 0.1 10^3/uL (0.0-0.2); BASO % 0.9 % (0.0-1.0); EOS # 0.1 10^3/uL (0.0-0.5); EOS % 1.7 % (0.0-3.0); HEMATOCRIT 51.1 % (42.0-52.0); LYMPH # 2.1 10^3/uL (1.5-5.0); LYMPH % 26.6 % (24.0-44.0); MEAN CORPUSCULAR HEMOGLOBIN 31.8 pg (27.0-33.0); MEAN CORPUSCULAR HGB CONC 33.3 g/dl (32.0-36.5); MEAN CORPUSCULAR VOLUME 95.7 fl (80.0-96.0); MONO # 0.8 10^3/uL (0.0-0.8); MONO % 9.9 % (0.0-5.0); NEUTROPHILS # 4.7 10^3/uL (1.5-8.5); NEUTROPHILS % 60.4 % (36.0-66.0); PLATELET COUNT, AUTOMATED 198 10^3/uL (150-450); RED BLOOD COUNT 5.34 10^6/uL (4.30-6.10); WHITE BLOOD COUNT 7.8 10^3/uL (4.0-10.0)
[2020-09-21 16:35] LABS: HEMOGLOBIN A1c 6.7 %
[2020-09-21 16:46] LABS: ALBUMIN 3.6 GM/DL (3.2-5.2); ALT/SGPT 33 U/L (12-78); BILIRUBIN,TOTAL 1.1 MG/DL (0.2-1.0); BLOOD UREA NITROGEN 14 MG/DL (7-18); CALCIUM LEVEL 9.2 MG/DL (8.8-10.2); CARBON DIOXIDE LEVEL 29 MEQ/L (21-32); CHLORIDE LEVEL 105 MEQ/L (98-107); CHOLESTEROL LEVEL 191 MG/DL (<200); CHOLESTEROL RISK RATIO 3.472 (<5); CREATININE FOR GFR 1.29 MG/DL (0.70-1.30); GLOMERULAR FILTRATION RATE 56.9 (>35); GLUCOSE, FASTING 114 MG/DL (70-100); HDL CHOLESTEROL 55 MG/DL (>40); LDL CHOLESTEROL 119 MG/DL (<100); MAGNESIUM LEVEL 2.1 MG/DL (1.8-2.4); NON-HDL-C 136 MG/DL; POTASSIUM SERUM 4.1 MEQ/L (3.5-5.1); PROSTATIC SPECIFIC AG MONITOR < 0.01 NG/ML (< 4.00); SODIUM LEVEL 142 MEQ/L (136-145); TOTAL PROTEIN 7.6 GM/DL (6.4-8.2); TRIGLYCERIDES LEVEL 87 MG/DL (<150); URIC ACID 8.4 MG/DL (3.5-7.2)
[2020-09-21 16:53] LABS: MALB URINE SIEMENS 95.3 MG/L; MAU/CREAT RATIO 34.9 MCG/MG (0.0-30.0)
[2020-09-22 12:40] LABS: ALBUMIN 3.91 GM/DL (3.29-5.55); ALBUMIN % 51.5 % (55.8-66.1); ALPHA-1-GLOBULIN % 3.7 % (2.9-4.9); ALPHA-1-GLOBULINS 0.28 GM/DL (0.17-0.41); ALPHA-2-GLOBULINS % 13.2 % (7.1-11.8); BETA-1-GLOBULINS 0.46 GM/DL (0.28-0.60); BETA-2-GLOBULINS 0.45 GM/DL (0.19-0.55); BETA-2-GLOBULINS % 5.9 % (3.2-6.5); GAMMA GLOBULIN % 19.7 % (11.1-18.8)
== END ==
LOC: M WUC 12:08
PROVIDERS: ATTEND Internal Medicine
DX: Z01.818 Encounter for other preprocedural examination (principal); E78.00 Pure hypercholesterolemia, unspecified; R73.01 Impaired fasting glucose; D47.2 Monoclonal gammopathy; F34.1 Dysthymic disorder; I48.20 Chronic atrial fibrillation, unspecified

== ENCOUNTER → 2020-09-29 | Outpatient (REF) | payer MEDICARE ==
[~2020-09-29] MED LIST changes: -BUPR150T3 PO; +BUPR150T4 PO
== END ==
LOC: M LAB REF 18:03
PROVIDERS: ATTEND Physician Assistant
DX: L82.1 Other seborrheic keratosis (principal); D29.0 Benign neoplasm of penis

== ENCOUNTER → 2021-03-31 | Outpatient (CLI) | payer MEDICARE, OTHER ==
[~2021-03-31] MED LIST changes: +BUPR150T12 PO; -BUPR150T4 PO; +OMEP40CA4 PO; -OMEP40CA97 PO
[2021-03-31 16:23] LABS: BASO # 0.1 10^3/uL (0.0-0.2); EOS # 0.1 10^3/uL (0.0-0.5); EOS % 1.2 % (0.0-3.0); HEMATOCRIT 51.3 % (42.0-52.0); HEMOGLOBIN 16.9 g/dl (13.5-17.5); LYMPH # 2.4 10^3/uL (1.5-5.0); LYMPH % 33.2 % (24.0-44.0); MEAN CORPUSCULAR HEMOGLOBIN 31.1 pg (27.0-33.0); MEAN CORPUSCULAR HGB CONC 32.9 g/dl (32.0-36.5); MEAN CORPUSCULAR VOLUME 94.5 fl (80.0-96.0); MONO # 0.7 10^3/uL (0.0-0.8); MONO % 9.5 % (2.0-8.0); NEUTROPHILS % 54.8 % (36.0-66.0); PLATELET COUNT, AUTOMATED 185 10^3/uL (150-450); RED BLOOD COUNT 5.43 10^6/uL (4.30-6.10); WHITE BLOOD COUNT 7.3 10^3/uL (4.0-10.0)
[2021-03-31 16:37] LABS: HEMOGLOBIN A1c 6.4 %
[2021-03-31 17:00] LABS: ALBUMIN 3.5 GM/DL (3.2-5.2); ALT/SGPT 26 U/L (12-78); BILIRUBIN,TOTAL 1.2 MG/DL (0.2-1.0); BLOOD UREA NITROGEN 10 MG/DL (7-18); CALCIUM LEVEL 9.1 MG/DL (8.8-10.2); CARBON DIOXIDE LEVEL 32 MEQ/L (21-32); CHLORIDE LEVEL 105 MEQ/L (98-107); CHOLESTEROL LEVEL 154 MG/DL (<200); CHOLESTEROL RISK RATIO 2.851 (<5); CREATININE FOR GFR 1.02 MG/DL (0.70-1.30); GLOMERULAR FILTRATION RATE > 60.0 (>35); GLUCOSE, FASTING 114 MG/DL (70-100); HDL CHOLESTEROL 54 MG/DL (>40); LDL CHOLESTEROL 81 MG/DL (<100); NON-HDL-C 100 MG/DL; POTASSIUM SERUM 4.2 MEQ/L (3.5-5.1); SODIUM LEVEL 141 MEQ/L (136-145); TOTAL PROTEIN 7.6 GM/DL (6.4-8.2); TRIGLYCERIDES LEVEL 93 MG/DL (<150); URIC ACID 7.5 MG/DL (3.5-7.2)
[2021-03-31 17:03] LABS: MALB URINE SIEMENS 87.2 MG/L; MAU/CREAT RATIO 46.1 MCG/MG (0.0-30.0)
== END ==
LOC: M WUC 12:15
PROVIDERS: ATTEND Internal Medicine
DX: M10.9 Gout, unspecified (principal); Z85.46 Personal history of malignant neoplasm of prostate; E78.00 Pure hypercholesterolemia, unspecified; R73.01 Impaired fasting glucose

== ENCOUNTER → 2021-10-04 | Outpatient (REF) | payer MEDICARE ==
[~2021-10-04] MED LIST changes: +LOSA100T45 PO; -LOSA100T50 PO
[2021-10-04 16:59] LABS: ALBUMIN 3.3 GM/DL (3.2-5.2); ALT/SGPT 19 U/L (12-78); BLOOD UREA NITROGEN 13 MG/DL (7-18); CALCIUM LEVEL 9.6 MG/DL (8.8-10.2); CARBON DIOXIDE LEVEL 30 MEQ/L (21-32); CHLORIDE LEVEL 107 MEQ/L (98-107); CREATININE FOR GFR 1.08 MG/DL (0.70-1.30); GLOMERULAR FILTRATION RATE > 60.0 (>35); GLUCOSE, FASTING 126 MG/DL (70-100); POTASSIUM SERUM 4.4 MEQ/L (3.5-5.1); SODIUM LEVEL 142 MEQ/L (136-145); TOTAL PROTEIN 7.3 GM/DL (6.4-8.2); URIC ACID 7.7 MG/DL (3.5-7.2)
[2021-10-04 17:16] LABS: MAU/CREAT RATIO 166.8 MCG/MG (0.0-30.0)
[2021-10-04 18:24] LABS: HEMOGLOBIN A1c 6.1 %
== END ==
LOC: M SFHCCLAY 09:40
PROVIDERS: ATTEND Internal Medicine
DX: E78.00 Pure hypercholesterolemia, unspecified (principal); R73.01 Impaired fasting glucose; M10.9 Gout, unspecified

== ENCOUNTER → 2022-01-18 | Outpatient (CLI) | payer OTHER, MEDICARE ==
[~2022-01-18] MED LIST changes: +BREO1INH INH; -D31000TA2 PO; +PROCTO-MED; +VITA100093 PO
== END ==
LOC: M LABSMTC 10:04
PROVIDERS: ATTEND Anesthesiology
DX: Z01.812 Encounter for preprocedural laboratory examination (principal); Z20.822 Contact with and (suspected) exposure to COVID-19

== ENCOUNTER 2022-01-20 13:35 | Emergency (ER) | payer OTHER, MEDICARE ==
[~2022-01-20] VITALS: Ht 188 cm; Wt 109.1 kg
[2022-01-20] MEDS ORDERED: LACT10SO3 PO (15:23)
[2022-01-20 15:51] VITALS: BP 148/85
[2022-01-22] MEDS ORDERED: SUPRSOL2 (09:33)
== END 2022-01-20 15:52 | disposition home or self-care (01) ==
LOC: M ED 13:35
DX: K59.00 Constipation, unspecified (principal); I48.91 Unspecified atrial fibrillation; I25.10 Atherosclerotic heart disease of native coronary artery without angina pectoris; K21.9 Gastro-esophageal reflux disease without esophagitis; Z85.820 Personal history of malignant melanoma of skin; Z88.0 Allergy status to penicillin; Z88.1 Allergy status to other antibiotic agents; Z88.2 Allergy status to sulfonamides; Z88.8 Allergy status to other drugs, medicaments and biological substances; Z79.899 Other long term (current) drug therapy; Z79.01 Long term (current) use of anticoagulants

== ENCOUNTER 2022-01-23 10:59 | Day surgery (SDC) | payer OTHER ==
[~2022-01-23] VITALS: Ht 188 cm; Wt 108.1 kg
[~2022-01-23 10:59] MED LIST changes: +LACT10SO3 PO; +NS 1,000 ML IV ONE; +SUPRSOL2
[2022-01-23] MEDS ORDERED: propofoL 200 MG/20 ML VIAL As Ordered ONE (13:31)
[2022-01-23] MEDS ORDERED: LIDOCAINE 2% 100MG/5ML SDV (FOR ANES.) As Ordered ONE (13:31)
[2022-01-23 14:14] VITALS: BP 129/25
== END 2022-01-23 14:26 | disposition home or self-care (01) ==
LOC: M OPP 10:59
PROVIDERS: ATTEND Surgery
DX: D12.4 Benign neoplasm of descending colon (principal); D17.5 Benign lipomatous neoplasm of intra-abdominal organs; K57.30 Diverticulosis of large intestine without perforation or abscess without bleeding; K59.00 Constipation, unspecified; R10.30 Lower abdominal pain, unspecified; Z80.42 Family history of malignant neoplasm of prostate; Z80.8 Family history of malignant neoplasm of other organs or systems; Z95.818 Presence of other cardiac implants and grafts; Z86.73 Personal history of transient ischemic attack (TIA), and cerebral infarction without residual deficits; Z86.718 Personal history of other venous thrombosis and embolism; Z79.02 Long term (current) use of antithrombotics/antiplatelets; Z79.899 Other long term (current) drug therapy; Z88.0 Allergy status to penicillin; Z88.1 Allergy status to other antibiotic agents; Z88.2 Allergy status to sulfonamides; Z91.041 Radiographic dye allergy status

== ENCOUNTER → 2022-01-26 | Outpatient (REF) | payer OTHER ==
[~2022-01-26] MED LIST changes: -NS 1,000 ML IV ONE
[2022-01-26 16:24] LABS: BASO % 0.4 % (0.0-1.0); EOS # 0.2 10^3/uL (0.0-0.5); EOS % 2.4 % (0.0-3.0); HEMOGLOBIN 15.5 g/dl (13.5-17.5); LYMPH # 2.3 10^3/uL (1.5-5.0); LYMPH % 24.8 % (24.0-44.0); MEAN CORPUSCULAR HEMOGLOBIN 31.6 pg (27.0-33.0); MEAN CORPUSCULAR HGB CONC 33.7 g/dl (32.0-36.5); MEAN CORPUSCULAR VOLUME 93.7 fl (80.0-96.0); MONO % 10.5 % (2.0-8.0); NEUTROPHILS # 5.7 10^3/uL (1.5-8.5); NEUTROPHILS % 61.6 % (36.0-66.0); PLATELET COUNT, AUTOMATED 188 10^3/uL (150-450); RED BLOOD COUNT 4.91 10^6/uL (4.30-6.10); WHITE BLOOD COUNT 9.2 10^3/uL (4.0-10.0)
[2022-01-26 16:25] LABS: ALBUMIN 3.1 GM/DL (3.2-5.2); ALT/SGPT 13 U/L (12-78); BILIRUBIN,TOTAL 1.4 MG/DL (0.2-1.0); BLOOD UREA NITROGEN 11 MG/DL (7-18); CALCIUM LEVEL 9.2 MG/DL (8.8-10.2); CARBON DIOXIDE LEVEL 34 MEQ/L (21-32); CHLORIDE LEVEL 103 MEQ/L (98-107); GLOMERULAR FILTRATION RATE > 60.0 (>35); GLUCOSE, FASTING 224 MG/DL (70-100); POTASSIUM SERUM 3.9 MEQ/L (3.5-5.1); SODIUM LEVEL 140 MEQ/L (136-145); TOTAL PROTEIN 6.9 GM/DL (6.4-8.2)
[2022-01-26 16:56] LABS: ERYTHROCYTE SEDIMENTATION RATE 19 mm/hr (0-20)
== END ==
LOC: M LABDRAWC 15:38
PROVIDERS: ATTEND Ophthalmology
DX: M31.6 Other giant cell arteritis (principal)

== ENCOUNTER → 2022-02-07 | Outpatient (REF) | payer MEDICARE | LOC: M LAB REF 08:08 | PROVIDERS: ATTEND Surgery | DX: M31.6 Other giant cell arteritis (principal) ==

== ENCOUNTER → 2022-03-19 | Outpatient (REF) | payer MEDICARE ==
[2022-03-19 17:25] LABS: BLOOD UREA NITROGEN 12 MG/DL (7-18); CALCIUM LEVEL 9.1 MG/DL (8.8-10.2); CARBON DIOXIDE LEVEL 31 MEQ/L (21-32); CHLORIDE LEVEL 107 MEQ/L (98-107); CREATININE FOR GFR 1.04 MG/DL (0.70-1.30); GLOMERULAR FILTRATION RATE > 60.0 (>35); GLUCOSE, FASTING 95 MG/DL (70-100); SODIUM LEVEL 142 MEQ/L (136-145)
== END ==
LOC: M LABDRAWC 16:37
PROVIDERS: ATTEND Ophthalmology
DX: M31.6 Other giant cell arteritis (principal)

== ENCOUNTER → 2022-04-26 | Outpatient (REF) | payer MEDICARE ==
[2022-04-26 17:47] LABS: BASO # 0.1 10^3/uL (0.0-0.2); BASO % 1.3 % (0.0-1.0); EOS # 0.1 10^3/uL (0.0-0.5); EOS % 1.8 % (0.0-3.0); HEMATOCRIT 50.6 % (42.0-52.0); HEMOGLOBIN 16.9 g/dl (13.5-17.5); LYMPH # 2.4 10^3/uL (1.5-5.0); MEAN CORPUSCULAR HGB CONC 33.4 g/dl (32.0-36.5); MEAN CORPUSCULAR VOLUME 92.7 fl (80.0-96.0); MONO # 0.7 10^3/uL (0.0-0.8); MONO % 9.7 % (2.0-8.0); NEUTROPHILS # 3.8 10^3/uL (1.5-8.5); NEUTROPHILS % 52.5 % (36.0-66.0); PLATELET COUNT, AUTOMATED 166 10^3/uL (150-450); RED BLOOD COUNT 5.46 10^6/uL (4.30-6.10); WHITE BLOOD COUNT 7.2 10^3/uL (4.0-10.0)
[2022-04-26 18:09] LABS: AMORPHOUS SEDIMENT LARGE (NEGATIVE); APPEARANCE, URINE TURBID (CLEAR); BACTERIA, URINE AUTO NEGATIVE (NEGATIVE); BILIRUBIN, URINE AUTO NEGATIVE (NEGATIVE); BLOOD, URINE BLOOD NEGATIVE (NEGATIVE); COLOR, URINE AMBER (YELLOW); GLUCOSE, URINE (UA) AUTO NEGATIVE (NEGATIVE); KETONE, URINE AUTO NEGATIVE (NEGATIVE); LEUKOCYTE ESTERASE, URINE AUTO NEGATIVE (NEGATIVE); MUCUS, URINE SMALL (NEGATIVE); NITRITE, URINE AUTO NEGATIVE (NEGATIVE); PROTEIN, URINE AUTO 1+ mg/dL (NEGATIVE); RBC, URINE AUTO 2 /HPF (0-3); SPECIFIC GRAVITY URINE AUTO 1.018 (1.002-1.035); SQUAMOUS EPITHELIAL CELL UR AU 0 /HPF (0-6); UROBILINOGEN, URINE AUTO 0.2 mg/dL (0.0-2.0); WBC, URINE AUTO 2 /HPF (0-3)
[2022-04-26 19:26] LABS: MAU/CREAT RATIO 124.2 MCG/MG (0.0-30.0)
[2022-04-26 20:52] LABS: ALBUMIN 3.3 GM/DL (3.2-5.2); ALT/SGPT 18 U/L (12-78); BILIRUBIN,TOTAL 1.2 MG/DL (0.2-1.0); BLOOD UREA NITROGEN 14 MG/DL (7-18); CALCIUM LEVEL 9.3 MG/DL (8.8-10.2); CARBON DIOXIDE LEVEL 28 MEQ/L (21-32); CHLORIDE LEVEL 106 MEQ/L (98-107); CHOLESTEROL LEVEL 113 MG/DL (<200); CHOLESTEROL RISK RATIO 2.173 (<5); CREATININE FOR GFR 0.95 MG/DL (0.70-1.30); GLOMERULAR FILTRATION RATE > 60.0 (>35); GLUCOSE, FASTING 115 MG/DL (70-100); HDL CHOLESTEROL 52 MG/DL (>40); LDL CHOLESTEROL 48 MG/DL (<100); NON-HDL-C 61 MG/DL; POTASSIUM SERUM 4.7 MEQ/L (3.5-5.1); SODIUM LEVEL 142 MEQ/L (136-145); TOTAL PROTEIN 7.3 GM/DL (6.4-8.2); TRIGLYCERIDES LEVEL 67 MG/DL (<150); URIC ACID 7.3 MG/DL (3.5-7.2)
[2022-04-27 00:08] LABS: HEMOGLOBIN A1c 6.1 %
[2022-04-27 10:27] LABS: ALBUMIN 3.62 GM/DL (3.29-5.55); ALBUMIN % 49.6 % (55.8-66.1); ALPHA-1-GLOBULIN % 3.9 % (2.9-4.9); ALPHA-1-GLOBULINS 0.28 GM/DL (0.17-0.41); ALPHA-2-GLOBULINS 1.07 GM/DL (0.42-0.99); ALPHA-2-GLOBULINS % 14.6 % (7.1-11.8); BETA-1-GLOBULINS 0.42 GM/DL (0.28-0.60); BETA-1-GLOBULINS % 5.8 % (4.7-7.2); BETA-2-GLOBULINS 0.39 GM/DL (0.19-0.55); BETA-2-GLOBULINS % 5.3 % (3.2-6.5); GAMMA GLOBULIN % 20.8 % (11.1-18.8); GAMMA GLOBULINS 1.52 GM/DL (0.65-1.58)
== END ==
LOC: M SFHCCLAY 10:41
PROVIDERS: ATTEND Internal Medicine Hematology
DX: E78.00 Pure hypercholesterolemia, unspecified (principal); M10.9 Gout, unspecified; R73.01 Impaired fasting glucose; Z85.820 Personal history of malignant melanoma of skin; D47.2 Monoclonal gammopathy

== ENCOUNTER → 2022-08-09 | Outpatient (CLI) | payer MEDICARE ==
[2022-08-09 15:03] LABS: HEMOGLOBIN A1c 5.8 % (4.0-6.0)
[2022-08-09 16:24] LABS: ALT/SGPT 13 U/L (7.0-40); BILIRUBIN,TOTAL 1.2 MG/DL (0.3-1.2); BLOOD UREA NITROGEN 11 MG/DL (9-23); CARBON DIOXIDE LEVEL 31 MMOL/L (20-31); CHLORIDE LEVEL 103 MMOL/L (98-107); CREATININE FOR GFR 0.95 MG/DL (0.70-1.30); GLOMERULAR FILTRATION RATE > 60.0 (>35); GLUCOSE, FASTING 168 MG/DL (74-106); POTASSIUM SERUM 4.6 MMOL/L (3.5-5.1); SODIUM LEVEL 143 MMOL/L (136-145); TOTAL PROTEIN 6.7 G/DL (5.7-8.2)
== END ==
LOC: M PLALAB 11:17
PROVIDERS: ATTEND Physician Assistant
DX: E11.621 Type 2 diabetes mellitus with foot ulcer (principal)

== ENCOUNTER → 2022-09-05 | Outpatient (REF) | payer MEDICARE ==
[2022-09-05 16:02] LABS: APPEARANCE, URINE MANUAL CLOUDY (CLEAR); COLOR, URINE MANUAL YELLOW (YELLOW); GLUCOSE, URINE (UA) MANUAL NEGATIVE (NEGATIVE); PROTEIN, URINE MANUAL 1+ mg/dL (NEGATIVE); SPECIFIC GRAVITY,URINE MANUAL 1.025 (1.002-1.035)
[2022-09-05 16:03] LABS: BILIRUBIN, URINE MANUAL NEGATIVE (NEGATIVE); KETONE, URINE MANUAL NEGATIVE (NEGATIVE); NITRITE, URINE MANUAL NEGATIVE (NEGATIVE); UROBILINOGEN, URINE MANUAL NORMAL (NORMAL)
[2022-09-05 16:05] LABS: BLOOD URINE MANUAL POSITIVE (NEGATIVE); LEUKOCYTE ESTERASE, URINE MAN NEGATIVE (NEGATIVE)
[2022-09-05 16:12] LABS: AMORPHOUS SEDIMENT, URINE LARGE AMOUNT (NEGATIVE); BACTERIA, URINE NONE SEEN; HYALINE CAST, URINE NONE SEEN /lpf (0-1); RBC, URINE 0-1 /hpf (0-3); SQUAMOUS EPITHELIAL CELL URINE SMALL AMOUNT /hpf (SMALL AMT); WBC, URINE 0-1 /hpf (0-3)
== END ==
LOC: M SFHCPLAZ 15:16
PROVIDERS: ATTEND Nurse Practitioner Family
DX: N39.0 Urinary tract infection, site not specified (principal)

== ENCOUNTER 2022-10-11 12:47 | Inpatient (IN) | payer MEDICARE ==
[~2022-10-11] VITALS: Ht 188 cm; Wt 91.8 kg
[~2022-10-11 12:47] MED LIST changes: +NYST-38 SS; -NYST50SS SS; -PRES10CA2; +PRES10CA2 PO
[2022-10-11] MEDS ORDERED: E-Z-PAQUE 96% w/w SUSP 176GM BTL As Ordered ONE (15:24)
[2022-10-11 15:30] LABS: BASO % 0.1 % (0.0-1.0); EOS # 0.1 10^3/uL (0.0-0.5); EOS % 0.5 % (0.0-3.0); HEMATOCRIT 41.8 % (42.0-52.0); HEMOGLOBIN 13.7 g/dl (13.5-17.5); LYMPH # 2.7 10^3/uL (1.5-5.0); LYMPH % 18.3 % (24.0-44.0); MEAN CORPUSCULAR HEMOGLOBIN 29.3 pg (27.0-33.0); MEAN CORPUSCULAR HGB CONC 32.8 g/dl (32.0-36.5); MEAN CORPUSCULAR VOLUME 89.3 fl (80.0-96.0); MONO # 1.1 10^3/uL (0.0-0.8); MONO % 7.6 % (2.0-8.0); NEUTROPHILS # 10.8 10^3/uL (1.5-8.5); NEUTROPHILS % 72.8 % (36.0-66.0); PLATELET COUNT, AUTOMATED 320 10^3/uL (150-450); RED BLOOD COUNT 4.68 10^6/uL (4.30-6.10); WHITE BLOOD COUNT 14.9 10^3/uL (4.0-10.0)
[2022-10-11] MEDS ORDERED: NS 1,000 ML IV SCH (15:35)
[2022-10-11] MEDS ORDERED: NS 500 ML IV ONE (15:35)
[2022-10-11 15:59] LABS: LIPASE 17 U/L (12-53)
[2022-10-11 16:00] LABS: MAGNESIUM LEVEL 1.5 MG/DL (1.8-2.4)
[2022-10-11 16:01] LABS: BILIRUBIN,DIRECT 0.5 MG/DL (<0.4)
[2022-10-11 16:03] LABS: ALBUMIN 1.9 G/DL (3.2-5.2); ALKALINE PHOSPHATASE 136 U/L (46-116); ALT/SGPT 54 U/L (7.0-40); AST/SGOT 72 U/L (<34); BILIRUBIN,TOTAL 1.2 MG/DL (0.3-1.2); BLOOD UREA NITROGEN 19 MG/DL (9-23); CALCIUM LEVEL 7.9 MG/DL (8.3-10.6); CARBON DIOXIDE LEVEL 33 MMOL/L (20-31); CHLORIDE LEVEL 96 MMOL/L (98-107); CREATININE FOR GFR 0.73 MG/DL (0.70-1.30); GLOMERULAR FILTRATION RATE > 60.0 (>35); GLUCOSE, FASTING 94 MG/DL (74-106); POTASSIUM SERUM 2.6 MMOL/L (3.5-5.1); SODIUM LEVEL 138 MMOL/L (136-145); TOTAL PROTEIN 5.9 G/DL (5.7-8.2)
[2022-10-11] MEDS ORDERED: KCL 10MEQ/100ML SWI (KRUN) 10 MEQ in IV 1 EA IV ONE (16:05)
[2022-10-11] MEDS ORDERED: cefTRIAXone SOD 2 GM in D5W MINI-BAG PLUS 50 ML IV ONE (16:05)
[2022-10-11 16:08] LABS: RSV AMPLIFICATION NEGATIVE (NEGATIVE)
[2022-10-11] MEDS ORDERED: PRED20TA PO (18:03)
[2022-10-11] MEDS ORDERED: TIZA2TA PO (18:03)
[2022-10-11] MEDS ORDERED: HOME MED LIST COMPLETE! XX SCH (18:10)
[2022-10-11] MEDS: MAG SULF 1GM/100ML (MAG RUN) 1 GM in IV 1 EA IV SCH ×2 (19:30→20:50)
[2022-10-11 22:04] VITALS: BP 139/77
[2022-10-11] MEDS: KCL 10MEQ/100ML SWI (KRUN) 10 MEQ in IV 1 EA IV SCH (23:13)
[2022-10-12] MEDS ORDERED: VANCOMYCIN ORAL SOL 250MG/5ML ORAL SYRINGE PO SCH
[2022-10-12] MEDS: KCL 10MEQ/100ML SWI (KRUN) 10 MEQ in IV 1 EA IV SCH ×3 (00:28→02:41)
[2022-10-12] MEDS: D5W/LR 1,000 ML IV SCH ×3 (03:46→17:34)
[2022-10-12 06:00] VITALS: BP 134/77
[2022-10-12 06:00] LABS: BLOOD UREA NITROGEN 17 MG/DL (9-23); CALCIUM LEVEL 7.4 MG/DL (8.3-10.6); CARBON DIOXIDE LEVEL 32 MMOL/L (20-31); CHLORIDE LEVEL 99 MMOL/L (98-107); CREATININE FOR GFR 0.69 MG/DL (0.70-1.30); GLOMERULAR FILTRATION RATE > 60.0 (>35); GLUCOSE, FASTING 105 MG/DL (74-106); SODIUM LEVEL 138 MMOL/L (136-145)
[2022-10-12 07:43] LABS: BASO % 0.1 % (0.0-1.0); EOS # 0.1 10^3/uL (0.0-0.5); EOS % 1.2 % (0.0-3.0); HEMATOCRIT 40.6 % (42.0-52.0); HEMOGLOBIN 13.3 g/dl (13.5-17.5); LYMPH # 1.6 10^3/uL (1.5-5.0); LYMPH % 18.2 % (24.0-44.0); MEAN CORPUSCULAR HEMOGLOBIN 29.3 pg (27.0-33.0); MEAN CORPUSCULAR HGB CONC 32.8 g/dl (32.0-36.5); MEAN CORPUSCULAR VOLUME 89.4 fl (80.0-96.0); MONO # 0.8 10^3/uL (0.0-0.8); MONO % 9.1 % (2.0-8.0); NEUTROPHILS # 6.1 10^3/uL (1.5-8.5); NEUTROPHILS % 70.6 % (36.0-66.0); PLATELET COUNT, AUTOMATED 274 10^3/uL (150-450); RED BLOOD COUNT 4.54 10^6/uL (4.30-6.10); WHITE BLOOD COUNT 8.6 10^3/uL (4.0-10.0)
[2022-10-12 08:30] VITALS: BP 138/76
[2022-10-12] MEDS: POTASSIUM CHLORIDE 10MEQ SR TABLET PO SCH ×3 (10:23→21:16)
[2022-10-12] MEDS: VITAMIN D 1,000 INTERNATIONAL UNITS TABLET PO SCH (10:24)
[2022-10-12] MEDS: CYANOCOBALAMIN 500 MCG TAB PO SCH (10:25)
[2022-10-12] MEDS: FIDAXOMICIN 200 MG TAB (DIFICID) PO SCH ×2 (10:25→21:16)
[2022-10-12] MEDS: APIXABAN 5 MG TAB (ELIQUIS) PO SCH ×2 (10:25→21:16)
[2022-10-12] MEDS ORDERED: BARIUM SULFATE 700 MG TABLET (E-Z-DISK) As Ordered ONE (11:01)
[2022-10-12] MEDS ORDERED: VARIBAR PUDDING 40% w/v 230ML TUBE As Ordered ONE (11:01)
[2022-10-12] MEDS ORDERED: E-Z-PAQUE 96% w/w SUSP 176GM BTL As Ordered ONE (11:01)
[2022-10-12] MEDS ORDERED: VARIBAR NECTAR 40% w/v 240ML SUSP BTL As Ordered ONE (11:01)
[2022-10-12 14:00] VITALS: BP 135/81
[2022-10-12 21:43] VITALS: BP 137/76
[2022-10-13 05:57] VITALS: BP 126/81
[2022-10-13 07:56] LABS: BASO % 0.4 % (0.0-1.0); EOS # 0.1 10^3/uL (0.0-0.5); EOS % 1.4 % (0.0-3.0); HEMATOCRIT 39.4 % (42.0-52.0); HEMOGLOBIN 12.8 g/dl (13.5-17.5); LYMPH # 1.7 10^3/uL (1.5-5.0); MEAN CORPUSCULAR HEMOGLOBIN 29.4 pg (27.0-33.0); MEAN CORPUSCULAR HGB CONC 32.5 g/dl (32.0-36.5); MEAN CORPUSCULAR VOLUME 90.6 fl (80.0-96.0); MONO # 0.9 10^3/uL (0.0-0.8); MONO % 10.9 % (2.0-8.0); NEUTROPHILS # 5.1 10^3/uL (1.5-8.5); PLATELET COUNT, AUTOMATED 268 10^3/uL (150-450); RED BLOOD COUNT 4.35 10^6/uL (4.30-6.10); WHITE BLOOD COUNT 7.9 10^3/uL (4.0-10.0)
[2022-10-13 08:57] LABS: BLOOD UREA NITROGEN 13 MG/DL (9-23); CALCIUM LEVEL 7.8 MG/DL (8.3-10.6); CARBON DIOXIDE LEVEL 33 MMOL/L (20-31); CHLORIDE LEVEL 103 MMOL/L (98-107); CREATININE FOR GFR 0.75 MG/DL (0.70-1.30); GLOMERULAR FILTRATION RATE > 60.0 (>35); GLUCOSE, FASTING 115 MG/DL (74-106); POTASSIUM SERUM 3.8 MMOL/L (3.5-5.1); SODIUM LEVEL 140 MMOL/L (136-145)
[2022-10-13] MEDS: FIDAXOMICIN 200 MG TAB (DIFICID) PO SCH ×2 (09:49→20:11)
[2022-10-13] MEDS: VITAMIN D 1,000 INTERNATIONAL UNITS TABLET PO SCH (09:50)
[2022-10-13] MEDS: APIXABAN 5 MG TAB (ELIQUIS) PO SCH ×2 (09:50→20:11)
[2022-10-13] MEDS: CYANOCOBALAMIN 500 MCG TAB PO SCH (09:50)
[2022-10-13] MEDS: RAMELTEON 8 MG TAB (ROZEREM) PO SCH (20:11)
[2022-10-14 06:12] VITALS: BP 132/77
[2022-10-14 06:24] LABS: BASO % 0.4 % (0.0-1.0); EOS # 0.1 10^3/uL (0.0-0.5); EOS % 1.6 % (0.0-3.0); HEMATOCRIT 40.4 % (42.0-52.0); HEMOGLOBIN 12.9 g/dl (13.5-17.5); LYMPH # 1.9 10^3/uL (1.5-5.0); LYMPH % 23.1 % (24.0-44.0); MEAN CORPUSCULAR HEMOGLOBIN 29.1 pg (27.0-33.0); MEAN CORPUSCULAR HGB CONC 31.9 g/dl (32.0-36.5); MONO # 0.8 10^3/uL (0.0-0.8); MONO % 9.8 % (2.0-8.0); NEUTROPHILS # 5.2 10^3/uL (1.5-8.5); NEUTROPHILS % 62.9 % (36.0-66.0); PLATELET COUNT, AUTOMATED 267 10^3/uL (150-450); RED BLOOD COUNT 4.44 10^6/uL (4.30-6.10); WHITE BLOOD COUNT 8.3 10^3/uL (4.0-10.0)
[2022-10-14 06:48] LABS: BLOOD UREA NITROGEN 12 MG/DL (9-23); CARBON DIOXIDE LEVEL 32 MMOL/L (20-31); CHLORIDE LEVEL 104 MMOL/L (98-107); CREATININE FOR GFR 0.69 MG/DL (0.70-1.30); GLOMERULAR FILTRATION RATE > 60.0 (>35); GLUCOSE, FASTING 105 MG/DL (74-106); POTASSIUM SERUM 4.1 MMOL/L (3.5-5.1); SODIUM LEVEL 141 MMOL/L (136-145)
[2022-10-14] MEDS: CYANOCOBALAMIN 500 MCG TAB PO SCH (09:32)
[2022-10-14] MEDS: FIDAXOMICIN 200 MG TAB (DIFICID) PO SCH ×2 (09:32→20:56)
[2022-10-14] MEDS: APIXABAN 5 MG TAB (ELIQUIS) PO SCH ×2 (09:32→20:57)
[2022-10-14] MEDS: VITAMIN D 1,000 INTERNATIONAL UNITS TABLET PO SCH (09:32)
[2022-10-14] MEDS: RAMELTEON 8 MG TAB (ROZEREM) PO SCH (20:56)
[2022-10-15 06:00] VITALS: BP 121/79
[2022-10-15] MEDS: CYANOCOBALAMIN 500 MCG TAB PO SCH (08:56)
[2022-10-15] MEDS: FIDAXOMICIN 200 MG TAB (DIFICID) PO SCH ×2 (08:56→20:32)
[2022-10-15] MEDS: VITAMIN D 1,000 INTERNATIONAL UNITS TABLET PO SCH (08:57)
[2022-10-15] MEDS: APIXABAN 5 MG TAB (ELIQUIS) PO SCH ×2 (08:57→20:31)
[2022-10-15 13:50] LABS: BASO # 0.1 10^3/uL (0.0-0.2); BASO % 0.5 % (0.0-1.0); EOS # 0.2 10^3/uL (0.0-0.5); EOS % 1.9 % (0.0-3.0); HEMATOCRIT 41.6 % (42.0-52.0); HEMOGLOBIN 13.5 g/dl (13.5-17.5); LYMPH # 2.2 10^3/uL (1.5-5.0); LYMPH % 21.8 % (24.0-44.0); MEAN CORPUSCULAR HEMOGLOBIN 29.5 pg (27.0-33.0); MEAN CORPUSCULAR HGB CONC 32.5 g/dl (32.0-36.5); MONO # 1.1 10^3/uL (0.0-0.8); MONO % 10.7 % (2.0-8.0); NEUTROPHILS # 6.3 10^3/uL (1.5-8.5); NEUTROPHILS % 62.8 % (36.0-66.0); PLATELET COUNT, AUTOMATED 256 10^3/uL (150-450); RED BLOOD COUNT 4.57 10^6/uL (4.30-6.10)
[2022-10-15 14:21] LABS: ALBUMIN 2.1 G/DL (3.2-5.2); ALKALINE PHOSPHATASE 149 U/L (46-116); ALT/SGPT 47 U/L (7.0-40); AST/SGOT 55 U/L (<34); BILIRUBIN,TOTAL 0.8 MG/DL (0.3-1.2); BLOOD UREA NITROGEN 11 MG/DL (9-23); CALCIUM LEVEL 8.4 MG/DL (8.3-10.6); CARBON DIOXIDE LEVEL 32 MMOL/L (20-31); CHLORIDE LEVEL 100 MMOL/L (98-107); CREATININE FOR GFR 0.75 MG/DL (0.70-1.30); GLOMERULAR FILTRATION RATE > 60.0 (>35); GLUCOSE, FASTING 97 MG/DL (74-106); POTASSIUM SERUM 5.4 MMOL/L (3.5-5.1); SODIUM LEVEL 137 MMOL/L (136-145); TOTAL PROTEIN 5.7 G/DL (5.7-8.2)
[2022-10-15] MEDS: ACETAMINOPHEN 500 MG TAB PO PRN (14:42)
[2022-10-15] MEDS ORDERED: PATIROMER SORBITEX CALCIUM 8.4 GM POWDER PACKET (VELTASSA) PO ONE (20:00)
[2022-10-15] MEDS: RAMELTEON 8 MG TAB (ROZEREM) PO SCH (20:31)
[2022-10-16 05:50] VITALS: BP 126/84
[2022-10-16 06:17] LABS: BLOOD UREA NITROGEN 10 MG/DL (9-23); CALCIUM LEVEL 8.2 MG/DL (8.3-10.6); CARBON DIOXIDE LEVEL 31 MMOL/L (20-31); CHLORIDE LEVEL 103 MMOL/L (98-107); CREATININE FOR GFR 0.72 MG/DL (0.70-1.30); GLOMERULAR FILTRATION RATE > 60.0 (>35); GLUCOSE, FASTING 100 MG/DL (74-106); POTASSIUM SERUM 4.4 MMOL/L (3.5-5.1); SODIUM LEVEL 139 MMOL/L (136-145)
[2022-10-16] MEDS: CYANOCOBALAMIN 500 MCG TAB PO SCH (09:17)
[2022-10-16] MEDS: FIDAXOMICIN 200 MG TAB (DIFICID) PO SCH ×2 (09:17→21:21)
[2022-10-16] MEDS: APIXABAN 5 MG TAB (ELIQUIS) PO SCH ×2 (09:17→21:22)
[2022-10-16] MEDS: VITAMIN D 1,000 INTERNATIONAL UNITS TABLET PO SCH (09:18)
[2022-10-16] MEDS: RAMELTEON 8 MG TAB (ROZEREM) PO SCH (21:22)
[2022-10-16] MEDS: ACETAMINOPHEN 500 MG TAB PO PRN (21:22)
[2022-10-17 05:45] VITALS: BP 124/80
[2022-10-17] MEDS: APIXABAN 5 MG TAB (ELIQUIS) PO SCH ×2 (09:43→21:27)
[2022-10-17] MEDS: VITAMIN D 1,000 INTERNATIONAL UNITS TABLET PO SCH (09:43)
[2022-10-17] MEDS: CYANOCOBALAMIN 500 MCG TAB PO SCH (09:43)
[2022-10-17] MEDS: FIDAXOMICIN 200 MG TAB (DIFICID) PO SCH ×2 (09:44→21:27)
[2022-10-17] MEDS: RAMELTEON 8 MG TAB (ROZEREM) PO SCH (21:27)
[2022-10-17] MEDS: ACETAMINOPHEN 500 MG TAB PO PRN (22:09)
[2022-10-18 06:00] VITALS: BP 133/81
[2022-10-18] MEDS: CYANOCOBALAMIN 500 MCG TAB PO SCH (09:55)
[2022-10-18] MEDS: APIXABAN 5 MG TAB (ELIQUIS) PO SCH ×2 (09:55→20:48)
[2022-10-18] MEDS: VITAMIN D 1,000 INTERNATIONAL UNITS TABLET PO SCH (09:55)
[2022-10-18] MEDS: FIDAXOMICIN 200 MG TAB (DIFICID) PO SCH ×2 (09:55→21:02)
[2022-10-18] MEDS ORDERED: OLANZapine INTRAMUSCULAR 10MG VIAL IM PRN ×2 (18:10)
[2022-10-18] MEDS: QUEtiapine FUMARATE 12.5 MG HALF-TAB PO ONE ×2 (18:23→18:51)
[2022-10-18] MEDS: RAMELTEON 8 MG TAB (ROZEREM) PO SCH (20:48)
[2022-10-18] MEDS: ACETAMINOPHEN 500 MG TAB PO PRN (20:50)
[2022-10-18] MEDS ORDERED: diphenhydrAMINE 50MG/ML VIAL IM PRN (22:45)
[2022-10-19 04:57] VITALS: BP 136/72
[2022-10-19] MEDS: VITAMIN D 1,000 INTERNATIONAL UNITS TABLET PO SCH (12:09)
[2022-10-19] MEDS: FIDAXOMICIN 200 MG TAB (DIFICID) PO SCH ×2 (12:09→21:12)
[2022-10-19] MEDS: APIXABAN 5 MG TAB (ELIQUIS) PO SCH ×2 (12:09→21:12)
[2022-10-19] MEDS: CYANOCOBALAMIN 500 MCG TAB PO SCH (12:09)
[2022-10-19] MEDS ORDERED: risperiDONE 0.5 MG TAB PO ONE (19:55)
[2022-10-19] MEDS ORDERED: OLANZapine INTRAMUSCULAR 10MG VIAL IM PRN (19:55)
[2022-10-19] MEDS ORDERED: MAGNESIUM OXIDE 400MG TAB (MAG-OX) PO SCH (21:00)
[2022-10-19] MEDS: RAMELTEON 8 MG TAB (ROZEREM) PO SCH (21:12)
[2022-10-19] MEDS: ACETAMINOPHEN 500 MG TAB PO PRN (21:13)
[2022-10-19 21:46] VITALS: BP 121/75
[2022-10-19 22:24] VITALS: BP 121/75
[2022-10-19] MEDS ORDERED: METOPROLOL TART 12.5 MG PER 1/2 TAB PO ONE (23:00)
[2022-10-19 23:30] VITALS: BP 103/82
[2022-10-20 05:30] VITALS: BP 94/60
[2022-10-20 06:46] LABS: BASO # 0.1 10^3/uL (0.0-0.2); BASO % 0.7 % (0.0-1.0); EOS # 0.1 10^3/uL (0.0-0.5); EOS % 1.8 % (0.0-3.0); HEMATOCRIT 37.5 % (42.0-52.0); HEMOGLOBIN 12.3 g/dl (13.5-17.5); LYMPH # 2.2 10^3/uL (1.5-5.0); MEAN CORPUSCULAR HEMOGLOBIN 29.6 pg (27.0-33.0); MEAN CORPUSCULAR HGB CONC 32.8 g/dl (32.0-36.5); MEAN CORPUSCULAR VOLUME 90.4 fl (80.0-96.0); MONO # 0.9 10^3/uL (0.0-0.8); MONO % 12.9 % (2.0-8.0); NEUTROPHILS # 3.7 10^3/uL (1.5-8.5); NEUTROPHILS % 52.5 % (36.0-66.0); PLATELET COUNT, AUTOMATED 235 10^3/uL (150-450); RED BLOOD COUNT 4.15 10^6/uL (4.30-6.10); WHITE BLOOD COUNT 7.1 10^3/uL (4.0-10.0)
[2022-10-20 07:09] LABS: CHOLESTEROL RISK RATIO 3.52 (<5); HDL CHOLESTEROL 28.4 MG/DL (>40); LDL CHOLESTEROL 57.6 MG/DL (<100)
[2022-10-20 07:11] LABS: ALKALINE PHOSPHATASE 126 U/L (46-116); ALT/SGPT 28 U/L (7.0-40); AST/SGOT 26 U/L (<34); BILIRUBIN,TOTAL 0.8 MG/DL (0.3-1.2); BLOOD UREA NITROGEN 12 MG/DL (9-23); CALCIUM LEVEL 8.1 MG/DL (8.3-10.6); CARBON DIOXIDE LEVEL 28 MMOL/L (20-31); CHLORIDE LEVEL 105 MMOL/L (98-107); CREATININE FOR GFR 0.85 MG/DL (0.70-1.30); GLOMERULAR FILTRATION RATE > 60.0 (>35); GLUCOSE, FASTING 110 MG/DL (74-106); MAGNESIUM LEVEL 1.6 MG/DL (1.8-2.4); POTASSIUM SERUM 4.4 MMOL/L (3.5-5.1); SODIUM LEVEL 141 MMOL/L (136-145); TOTAL PROTEIN 4.9 G/DL (5.7-8.2)
[2022-10-20] MEDS: FIDAXOMICIN 200 MG TAB (DIFICID) PO SCH ×2 (08:54→20:07)
[2022-10-20] MEDS: MAGNESIUM OXIDE 400MG TAB (MAG-OX) PO SCH ×2 (08:54→20:07)
[2022-10-20] MEDS: VITAMIN D 1,000 INTERNATIONAL UNITS TABLET PO SCH (08:54)
[2022-10-20] MEDS: CYANOCOBALAMIN 500 MCG TAB PO SCH (08:54)
[2022-10-20] MEDS: APIXABAN 5 MG TAB (ELIQUIS) PO SCH ×2 (08:54→20:07)
[2022-10-20 14:13] VITALS: BP 106/68
[2022-10-20] MEDS: RAMELTEON 8 MG TAB (ROZEREM) PO SCH (20:08)
[2022-10-21 06:00] VITALS: BP 110/66
[2022-10-21] MEDS: FIDAXOMICIN 200 MG TAB (DIFICID) PO SCH ×2 (08:56→20:29)
[2022-10-21] MEDS: CYANOCOBALAMIN 500 MCG TAB PO SCH (08:56)
[2022-10-21] MEDS: VITAMIN D 1,000 INTERNATIONAL UNITS TABLET PO SCH (08:56)
[2022-10-21] MEDS: APIXABAN 5 MG TAB (ELIQUIS) PO SCH ×2 (09:01→20:29)
[2022-10-21 09:05] VITALS: BP 98/57
[2022-10-21] MEDS: MAGNESIUM OXIDE 400MG TAB (MAG-OX) PO SCH (13:46)
[2022-10-21] MEDS: ATORVASTATIN 10 MG TAB PO SCH (13:50)
[2022-10-21] MEDS ORDERED: ATOR1TAB21 PO (18:09)
[2022-10-21] MEDS ORDERED: OMEP40CA4 PO (18:10)
[2022-10-21] MEDS ORDERED: BREO1INH PO (18:10)
[2022-10-21] MEDS: SYMBICORT 80/4.5MCG INHALER 6GM INH SCH ×2 (19:19→19:21)
[2022-10-21] MEDS: FAMOTIDINE 20 MG TAB PO SCH (20:29)
[2022-10-21] MEDS: RAMELTEON 8 MG TAB (ROZEREM) PO SCH (20:29)
[2022-10-22 06:54] VITALS: BP 108/66
[2022-10-22] MEDS: SYMBICORT 80/4.5MCG INHALER 6GM INH SCH ×2 (08:11→20:00)
[2022-10-22] MEDS ORDERED: ATORVASTATIN 20 MG TAB PO SCH (09:00)
[2022-10-22] MEDS: MAGNESIUM OXIDE 400MG TAB (MAG-OX) PO SCH (09:53)
[2022-10-22] MEDS: FAMOTIDINE 20 MG TAB PO SCH ×2 (09:53→21:22)
[2022-10-22] MEDS: APIXABAN 5 MG TAB (ELIQUIS) PO SCH ×2 (09:53→21:22)
[2022-10-22] MEDS: CYANOCOBALAMIN 500 MCG TAB PO SCH (09:53)
[2022-10-22] MEDS: VITAMIN D 1,000 INTERNATIONAL UNITS TABLET PO SCH (09:54)
[2022-10-22] MEDS: ATORVASTATIN 10 MG TAB PO SCH (09:54)
[2022-10-22] MEDS: QUEtiapine FUMARATE 25 MG TAB PO SCH (15:32)
[2022-10-22] MEDS: RAMELTEON 8 MG TAB (ROZEREM) PO SCH (21:22)
[2022-10-23 06:00] VITALS: BP 127/80
[2022-10-23] MEDS: SYMBICORT 80/4.5MCG INHALER 6GM INH SCH ×2 (08:19→20:37)
[2022-10-23] MEDS: CYANOCOBALAMIN 500 MCG TAB PO SCH (09:41)
[2022-10-23] MEDS: MAGNESIUM OXIDE 400MG TAB (MAG-OX) PO SCH (09:41)
[2022-10-23] MEDS: APIXABAN 5 MG TAB (ELIQUIS) PO SCH ×2 (09:41→21:55)
[2022-10-23] MEDS: VITAMIN D 1,000 INTERNATIONAL UNITS TABLET PO SCH (09:41)
[2022-10-23] MEDS: FAMOTIDINE 20 MG TAB PO SCH ×2 (09:41→21:55)
[2022-10-23] MEDS: ATORVASTATIN 10 MG TAB PO SCH (09:41)
[2022-10-23] MEDS: QUEtiapine FUMARATE 25 MG TAB PO SCH (15:04)
[2022-10-23] MEDS: RAMELTEON 8 MG TAB (ROZEREM) PO SCH (21:55)
[2022-10-24 06:00] VITALS: BP 97/62
[2022-10-24] MEDS: SYMBICORT 80/4.5MCG INHALER 6GM INH SCH ×2 (08:00→08:02)
[2022-10-24] MEDS: APIXABAN 5 MG TAB (ELIQUIS) PO SCH (09:49)
[2022-10-24] MEDS: CYANOCOBALAMIN 500 MCG TAB PO SCH (09:49)
[2022-10-24] MEDS: MAGNESIUM OXIDE 400MG TAB (MAG-OX) PO SCH (09:49)
[2022-10-24] MEDS: ATORVASTATIN 10 MG TAB PO SCH (09:50)
[2022-10-24] MEDS: FAMOTIDINE 20 MG TAB PO SCH (09:50)
[2022-10-24] MEDS: VITAMIN D 1,000 INTERNATIONAL UNITS TABLET PO SCH (09:50)
[2022-10-24] MEDS ORDERED: MAGN400T2 PO (10:24)
[2022-10-24] MEDS ORDERED: FAMO20TA PO (10:24)
[2022-10-24] MEDS ORDERED: SYMB80INH INH (10:24)
[2022-10-24] MEDS ORDERED: QUET1TAB17 PO (10:24)
== END 2022-10-24 12:30 | disposition home or self-care (01) | DRG 372 ==
LOC: M ED 12:47 → M ED INP 17:20 → ENRESERV 21:00 → M MSPAV 22:04
PROVIDERS: ADMIT Student in an Organized Health Care Education/Training Program; ATTEND Family Medicine
DX: A04.72 Enterocolitis due to Clostridium difficile, not specified as recurrent (principal); E87.20 Acidosis, unspecified; J90 Pleural effusion, not elsewhere classified; I48.20 Chronic atrial fibrillation, unspecified; D47.2 Monoclonal gammopathy; F34.1 Dysthymic disorder; K21.9 Gastro-esophageal reflux disease without esophagitis; K59.00 Constipation, unspecified; G25.81 Restless legs syndrome; E87.6 Hypokalemia; G47.00 Insomnia, unspecified; H35.30 Unspecified macular degeneration; L30.9 Dermatitis, unspecified; R13.10 Dysphagia, unspecified; L89.620 Pressure ulcer of left heel, unstageable; L89.151 Pressure ulcer of sacral region, stage 1; G31.84 Mild cognitive impairment of uncertain or unknown etiology; E78.5 Hyperlipidemia, unspecified; F32.A Depression, unspecified; E11.628 Type 2 diabetes mellitus with other skin complications; Z79.01 Long term (current) use of anticoagulants; Z79.2 Long term (current) use of antibiotics; Z79.899 Other long term (current) drug therapy; Z88.0 Allergy status to penicillin; Z88.1 Allergy status to other antibiotic agents; Z88.8 Allergy status to other drugs, medicaments and biological substances; Z91.041 Radiographic dye allergy status; Z86.718 Personal history of other venous thrombosis and embolism; Z85.46 Personal history of malignant neoplasm of prostate; Z96.651 Presence of right artificial knee joint; Z89.421 Acquired absence of other right toe(s); Z90.49 Acquired absence of other specified parts of digestive tract; Z91.51 Personal history of suicidal behavior; Z20.822 Contact with and (suspected) exposure to COVID-19

== ENCOUNTER 2022-11-19 12:40 | Emergency (ER) | payer MEDICARE ==
[~2022-11-19] VITALS: Ht 182.9 cm; Wt 108.6 kg
[~2022-11-19 12:40] MED LIST changes: +BREO1INH PO; +FAMO20TA PO; +PRED20TA PO; +QUET1TAB17 PO; +SYMB80INH INH; +TIZA2TA PO
[2022-11-19 14:37] LABS: BASO % 0.3 % (0.0-1.0); EOS # 0.3 10^3/uL (0.0-0.5); EOS % 3.5 % (0.0-3.0); HEMATOCRIT 39.4 % (42.0-52.0); HEMOGLOBIN 12.4 g/dl (13.5-17.5); LYMPH # 2.6 10^3/uL (1.5-5.0); LYMPH % 26.8 % (24.0-44.0); MEAN CORPUSCULAR HEMOGLOBIN 28.9 pg (27.0-33.0); MEAN CORPUSCULAR HGB CONC 31.5 g/dl (32.0-36.5); MEAN CORPUSCULAR VOLUME 91.8 fl (80.0-96.0); MONO # 1.1 10^3/uL (0.0-0.8); MONO % 11.3 % (2.0-8.0); NEUTROPHILS # 5.7 10^3/uL (1.5-8.5); NEUTROPHILS % 57.7 % (36.0-66.0); PLATELET COUNT, AUTOMATED 176 10^3/uL (150-450); RED BLOOD COUNT 4.29 10^6/uL (4.30-6.10); WHITE BLOOD COUNT 9.8 10^3/uL (4.0-10.0)
[2022-11-19 14:57] LABS: ALBUMIN 2.3 G/DL (3.2-5.2); ALKALINE PHOSPHATASE 113 U/L (46-116); ALT/SGPT < 9 U/L (7.0-40); AST/SGOT 15 U/L (<34); BILIRUBIN,DIRECT 0.5 MG/DL (<0.4); BILIRUBIN,TOTAL 1.5 MG/DL (0.3-1.2); BLOOD UREA NITROGEN 10 MG/DL (9-23); CALCIUM LEVEL 8.4 MG/DL (8.3-10.6); CARBON DIOXIDE LEVEL 29 MMOL/L (20-31); CHLORIDE LEVEL 103 MMOL/L (98-107); CREATININE FOR GFR 0.82 MG/DL (0.70-1.30); GLOMERULAR FILTRATION RATE > 60.0 (>35); GLUCOSE, FASTING 105 MG/DL (74-106); POTASSIUM SERUM 4.2 MMOL/L (3.5-5.1); SODIUM LEVEL 138 MMOL/L (136-145); THYROID STIMULATING HORMONE 1.869 uIU/ML (0.55-4.78); TOTAL PROTEIN 6.3 G/DL (5.7-8.2)
[2022-11-19 15:09] LABS: RSV AMPLIFICATION NEGATIVE (NEGATIVE)
[2022-11-19] MEDS ORDERED: cefTRIAXone SOD 1 GM in D5W MINI-BAG PLUS 50 ML IV ONE (15:30)
[2022-11-19] MEDS ORDERED: IBUPROFEN 600MG TAB PO ONE (15:55)
[2022-11-19] MEDS ORDERED: DOXY-443 PO (16:36)
[2022-11-19] MEDS ORDERED: AMOX875T2 PO (16:36)
[2022-11-19 16:56] VITALS: BP 141/76
== END 2022-11-19 17:37 | disposition home or self-care (01) ==
LOC: M ED 12:40
DX: J18.9 Pneumonia, unspecified organism (principal); R41.0 Disorientation, unspecified; I48.91 Unspecified atrial fibrillation; K21.9 Gastro-esophageal reflux disease without esophagitis; E78.5 Hyperlipidemia, unspecified; G25.81 Restless legs syndrome; Z86.718 Personal history of other venous thrombosis and embolism; Z79.01 Long term (current) use of anticoagulants; Z79.899 Other long term (current) drug therapy; Z88.0 Allergy status to penicillin; Z88.2 Allergy status to sulfonamides; Z88.1 Allergy status to other antibiotic agents; Z88.8 Allergy status to other drugs, medicaments and biological substances; Z91.041 Radiographic dye allergy status
CPT/HCPCS: 70450; 71045; 80048; 80076; 81001; 82140; 83605; 84443; 85025; 87040; 87631; 93005; 93041; 94760; 96365; 99285; J0696

== ENCOUNTER → 2022-12-13 | Outpatient (CLI) | payer MEDICARE ==
[~2022-12-13] MED LIST changes: +AMOX875T2 PO; +DOXY-443 PO
[2022-12-13 14:16] LABS: INR 1.26; PARTIAL THROMBOPLASTIN TIME 28.1 SECONDS (24.8-34.2); PROTHROMBIN TIME 16.1 SECONDS (12.5-14.5)
[2022-12-13 15:33] LABS: ALBUMIN 2.9 G/DL (3.2-5.2); ALKALINE PHOSPHATASE 113 U/L (46-116); ALT/SGPT < 9 U/L (7.0-40); AST/SGOT 17 U/L (<34); BILIRUBIN,TOTAL 1.1 MG/DL (0.3-1.2); BLOOD UREA NITROGEN 17 MG/DL (9-23); CARBON DIOXIDE LEVEL 31 MMOL/L (20-31); CHLORIDE LEVEL 107 MMOL/L (98-107); CREATININE FOR GFR 0.88 MG/DL (0.70-1.30); GLOMERULAR FILTRATION RATE > 60.0 (>35); GLUCOSE, FASTING 98 MG/DL (74-106); POTASSIUM SERUM 4.8 MMOL/L (3.5-5.1); SODIUM LEVEL 143 MMOL/L (136-145); TOTAL PROTEIN 6.7 G/DL (5.7-8.2)
[2022-12-13 15:53] LABS: CA19-9 TUMOR MARKER,CARBOHYDRA 6.5 U/ML (<35.0)
[2022-12-16 06:40] LABS: FREE KAPPA LIGHT CHAINS SERUM 41.9 mg/L (3.3-19.4); FREE LAMBDA LIGHT CHAINS SERUM 122.5 mg/L (5.7-26.3); KAPPA/LAMBDA RATIO SERUM 0.34 (0.26-1.65)
== END ==
LOC: M PLALAB 11:58
PROVIDERS: ATTEND Family Medicine
DX: R17 Unspecified jaundice (principal)

== ENCOUNTER → 2023-02-01 | Outpatient (REF) | payer MEDICARE ==
[~2023-02-01] MED LIST changes: -LOSA100T45 PO; +LOSA100T46 PO
[2023-02-01 18:18] LABS: HEMOGLOBIN 14.3 g/dl (13.5-17.5); MEAN CORPUSCULAR HGB CONC 32.5 g/dl (32.0-36.5); MEAN CORPUSCULAR VOLUME 92.4 fl (80.0-96.0); PLATELET COUNT, AUTOMATED 180 10^3/uL (150-450); RED BLOOD COUNT 4.76 10^6/uL (4.30-6.10); WHITE BLOOD COUNT 7.7 10^3/uL (4.0-10.0)
[2023-02-01 18:38] LABS: CREATININE, URINE 145.5 MG/DL
[2023-02-01 18:39] LABS: MAU/CREAT RATIO 223.3 MCG/MG (0.0-30.0)
[2023-02-01 18:40] LABS: ALBUMIN 3.5 G/DL (3.2-5.2); ALKALINE PHOSPHATASE 120 U/L (46-116); ALT/SGPT 10 U/L (7.0-40); AST/SGOT 16 U/L (<34); BILIRUBIN,TOTAL 1.1 MG/DL (0.3-1.2); BLOOD UREA NITROGEN 19 MG/DL (9-23); CARBON DIOXIDE LEVEL 28 MMOL/L (20-31); CHLORIDE LEVEL 106 MMOL/L (98-107); CHOLESTEROL LEVEL 91 MG/DL (<200); CHOLESTEROL RISK RATIO 2.09 (<5); CREATININE FOR GFR 0.95 MG/DL (0.70-1.30); FREE T4 1.03 NG/DL (0.89-1.76); GLOMERULAR FILTRATION RATE > 60.0 (>35); GLUCOSE, FASTING 114 MG/DL (74-106); HDL CHOLESTEROL 43.5 MG/DL (>40); LDL CHOLESTEROL 38.7 MG/DL (<100); NON-HDL-C 47.5 MG/DL; POTASSIUM SERUM 4.5 MMOL/L (3.5-5.1); SODIUM LEVEL 142 MMOL/L (136-145); TOTAL 25(OH) VITAMIN D 39.6 NG/ML (20.0-100.0); TOTAL PROTEIN 7.1 G/DL (5.7-8.2); TRIGLYCERIDES LEVEL 44 MG/DL (<150); VITAMIN B12 LEVEL 490 PG/ML (211-911)
== END ==
LOC: M SFHCPLAZ 10:26
PROVIDERS: ATTEND Internal Medicine Hematology
DX: G47.00 Insomnia, unspecified (principal)

== ENCOUNTER → 2023-03-22 | Outpatient (CLI) | payer OTHER | LOC: M LAB 13:38 | PROVIDERS: ATTEND Physician Assistant | DX: M79.89 Other specified soft tissue disorders (principal) ==

== ENCOUNTER → 2023-03-22 | Outpatient (REF) | payer MEDICARE | LOC: M SFHCPLAZ 11:53 | PROVIDERS: ATTEND Physician Assistant | DX: M79.89 Other specified soft tissue disorders (principal) ==

== ENCOUNTER → 2023-03-22 | Outpatient (CLI) | payer OTHER ==
[2023-03-22 15:49] LABS: BASO # 0.1 10^3/uL (0.0-0.2); BASO % 0.7 % (0.0-1.0); EOS # 0.1 10^3/uL (0.0-0.5); EOS % 1.2 % (0.0-3.0); HEMATOCRIT 45.8 % (42.0-52.0); HEMOGLOBIN 14.8 g/dl (13.5-17.5); LYMPH # 2.3 10^3/uL (1.5-5.0); LYMPH % 26.9 % (24.0-44.0); MEAN CORPUSCULAR HEMOGLOBIN 29.1 pg (27.0-33.0); MEAN CORPUSCULAR HGB CONC 32.3 g/dl (32.0-36.5); MONO # 0.8 10^3/uL (0.0-0.8); MONO % 9.3 % (2.0-8.0); NEUTROPHILS # 5.1 10^3/uL (1.5-8.5); NEUTROPHILS % 61.3 % (36.0-66.0); PLATELET COUNT, AUTOMATED 169 10^3/uL (150-450); RED BLOOD COUNT 5.09 10^6/uL (4.30-6.10); WHITE BLOOD COUNT 8.4 10^3/uL (4.0-10.0)
[2023-03-22 16:14] LABS: ALBUMIN 3.5 G/DL (3.2-5.2); ALKALINE PHOSPHATASE 126 U/L (46-116); ALT/SGPT 10 U/L (7.0-40); AST/SGOT 16 U/L (<34); BILIRUBIN,TOTAL 1.1 MG/DL (0.3-1.2); BLOOD UREA NITROGEN 22 MG/DL (9-23); CALCIUM LEVEL 8.9 MG/DL (8.3-10.6); CARBON DIOXIDE LEVEL 31 MMOL/L (20-31); CHLORIDE LEVEL 107 MMOL/L (98-107); CREATININE FOR GFR 0.89 MG/DL (0.70-1.30); GLOMERULAR FILTRATION RATE > 60.0 (>35); GLUCOSE, FASTING 135 MG/DL (74-106); MAGNESIUM LEVEL 1.5 MG/DL (1.8-2.4); POTASSIUM SERUM 4.3 MMOL/L (3.5-5.1); SODIUM LEVEL 143 MMOL/L (136-145); TOTAL PROTEIN 7.1 G/DL (5.7-8.2)
== END ==
LOC: M RAD 15:19
PROVIDERS: ATTEND Physician Assistant
DX: M79.89 Other specified soft tissue disorders (principal); L97.422 Non-pressure chronic ulcer of left heel and midfoot with fat layer exposed; H53.8 Other visual disturbances

== ENCOUNTER → 2023-05-01 | Outpatient (CLI) | payer MEDICARE | LOC: M PLAIMG 13:42 | PROVIDERS: ATTEND Physician Assistant | DX: G31.84 Mild cognitive impairment of uncertain or unknown etiology (principal); R94.02 Abnormal brain scan ==

== ENCOUNTER → 2023-05-16 | Outpatient (REF) | payer MEDICARE ==
[2023-05-16 18:13] LABS: HEMATOCRIT 48.7 % (42.0-52.0); HEMOGLOBIN 15.7 g/dl (13.5-17.5); MEAN CORPUSCULAR HEMOGLOBIN 28.8 pg (27.0-33.0); MEAN CORPUSCULAR HGB CONC 32.2 g/dl (32.0-36.5); MEAN CORPUSCULAR VOLUME 89.2 fl (80.0-96.0); PLATELET COUNT, AUTOMATED 200 10^3/uL (150-450); RED BLOOD COUNT 5.46 10^6/uL (4.30-6.10); WHITE BLOOD COUNT 8.4 10^3/uL (4.0-10.0)
[2023-05-16 18:20] LABS: C REACTIVE PROTEIN QUANTITATIV < 0.40 MG/DL (<1.0)
[2023-05-16 18:21] LABS: ALBUMIN 3.5 G/DL (3.2-5.2); ALKALINE PHOSPHATASE 142 U/L (46-116); ALT/SGPT 26 U/L (7.0-40); AST/SGOT 33 U/L (<34); BILIRUBIN,TOTAL 1.7 MG/DL (0.3-1.2); BLOOD UREA NITROGEN 31 MG/DL (9-23); CALCIUM LEVEL 9.8 MG/DL (8.3-10.6); CARBON DIOXIDE LEVEL 32 MMOL/L (20-31); CHLORIDE LEVEL 104 MMOL/L (98-107); CHOLESTEROL LEVEL 106 MG/DL (<200); CHOLESTEROL RISK RATIO 2.52 (<5); CREATININE FOR GFR 1.13 MG/DL (0.70-1.30); GLOMERULAR FILTRATION RATE > 60.0 (>35); GLUCOSE, FASTING 125 MG/DL (74-106); HDL CHOLESTEROL 41.9 MG/DL (>40); LDL CHOLESTEROL 50.3 MG/DL (<100); NON-HDL-C 64.1 MG/DL; POTASSIUM SERUM 4.5 MMOL/L (3.5-5.1); SODIUM LEVEL 142 MMOL/L (136-145); TOTAL PROTEIN 7.7 G/DL (5.7-8.2); TRIGLYCERIDES LEVEL 69 MG/DL (<150)
[2023-05-16 18:22] LABS: THYROID STIMULATING HORMONE 2.811 uIU/ML (0.55-4.78)
[2023-05-16 18:23] LABS: FREE T4 1.01 NG/DL (0.89-1.76); TOTAL 25(OH) VITAMIN D 41.7 NG/ML (20.0-100.0); VITAMIN B12 LEVEL 608 PG/ML (211-911)
[2023-05-16 18:41] LABS: CREATININE, URINE 110.2 MG/DL; MAU/CREAT RATIO 183.3 MCG/MG (0.0-30.0)
[2023-05-16 18:59] LABS: HEMOGLOBIN A1c 7.2 % (4.0-6.0)
[2023-05-20 18:09] LABS: FREE KAPPA LIGHT CHAINS SERUM 29.7 mg/L (3.3-19.4); FREE LAMBDA LIGHT CHAINS SERUM 104.7 mg/L (5.7-26.3); INSULIN LEVEL 14.5 uIU/mL (2.6-24.9); KAPPA/LAMBDA RATIO SERUM 0.28 (0.26-1.65)
== END ==
LOC: M SFHCPLAZ 11:07
PROVIDERS: ATTEND Internal Medicine Hematology
DX: E11.621 Type 2 diabetes mellitus with foot ulcer (principal); D47.2 Monoclonal gammopathy

== ENCOUNTER → 2023-07-02 | Outpatient (REF) | payer MEDICARE | LOC: M SFHCCAPE 17:09 | PROVIDERS: ATTEND Physician Assistant Medical | DX: R35.0 Frequency of micturition (principal) ==

== ENCOUNTER → 2023-10-04 | Outpatient (REF) | payer MEDICARE ==
[~2023-10-04] MED LIST changes: -ALLE1TAB23 PO; +FEXO-157 PO
[2023-10-04 11:53] LABS: HEMATOCRIT 45.4 % (42.0-52.0); HEMOGLOBIN 15.6 g/dl (13.5-17.5); MEAN CORPUSCULAR HEMOGLOBIN 30.6 pg (27.0-33.0); MEAN CORPUSCULAR HGB CONC 34.4 g/dl (32.0-36.5); MEAN CORPUSCULAR VOLUME 89.2 fl (80.0-96.0); PLATELET COUNT, AUTOMATED 146 10^3/uL (150-450); RED BLOOD COUNT 5.09 10^6/uL (4.30-6.10); WHITE BLOOD COUNT 6.9 10^3/uL (4.0-10.0)
[2023-10-04 12:00] LABS: HEMOGLOBIN A1c 9.8 % (4.0-6.0)
[2023-10-04 12:26] LABS: VITAMIN B12 LEVEL 931 PG/ML (211-911)
[2023-10-04 12:27] LABS: THYROID STIMULATING HORMONE 2.368 uIU/ML (0.55-4.78); TOTAL 25(OH) VITAMIN D 56.5 NG/ML (20.0-100.0)
[2023-10-04 12:28] LABS: FREE T4 1.07 NG/DL (0.89-1.76)
[2023-10-04 12:31] LABS: ALBUMIN 3.3 G/DL (3.2-5.2); ALKALINE PHOSPHATASE 166 U/L (46-116); ALT/SGPT 27 U/L (7.0-40); AST/SGOT 31 U/L (<34); BILIRUBIN,TOTAL 2.2 MG/DL (0.3-1.2); BLOOD UREA NITROGEN 23 MG/DL (9-23); CALCIUM LEVEL 9.2 MG/DL (8.3-10.6); CARBON DIOXIDE LEVEL 30 MMOL/L (20-31); CHLORIDE LEVEL 100 MMOL/L (98-107); CHOLESTEROL LEVEL 104 MG/DL (<200); CHOLESTEROL RISK RATIO 2.35 (<5); CREATININE FOR GFR 1.05 MG/DL (0.70-1.30); GLOMERULAR FILTRATION RATE > 60.0 (>35); GLUCOSE, FASTING 284 MG/DL (74-106); HDL CHOLESTEROL 44.1 MG/DL (>40); LDL CHOLESTEROL 44.5 MG/DL (<100); NON-HDL-C 59.9 MG/DL; POTASSIUM SERUM 4.2 MMOL/L (3.5-5.1); SODIUM LEVEL 138 MMOL/L (136-145); TOTAL PROTEIN 7.3 G/DL (5.7-8.2); TRIGLYCERIDES LEVEL 77 MG/DL (<150)
[2023-10-04 12:36] LABS: MAU/CREAT RATIO 550.6 MCG/MG (0.0-30.0)
== END ==
LOC: M SFHCPLAZ 09:25
PROVIDERS: ATTEND Internal Medicine Hematology
DX: E11.621 Type 2 diabetes mellitus with foot ulcer (principal); D47.2 Monoclonal gammopathy; Z79.899 Other long term (current) drug therapy

== ENCOUNTER 2023-11-01 20:19 | Emergency (ER) | payer MEDICARE ==
[~2023-11-01] VITALS: Ht 188 cm; Wt 104.2 kg
[2023-11-01] MEDS: LIDOCAINE 2% 5ML JELLY UROJET TOP ONE (20:40)
[2023-11-01 21:05] LABS: BASO % 0.7 % (0.0-1.0); EOS # 0.1 10^3/uL (0.0-0.5); HEMATOCRIT 43.3 % (42.0-52.0); HEMOGLOBIN 15.1 g/dl (13.5-17.5); LYMPH # 2.1 10^3/uL (1.5-5.0); LYMPH % 34.7 % (24.0-44.0); MEAN CORPUSCULAR HEMOGLOBIN 31.3 pg (27.0-33.0); MEAN CORPUSCULAR HGB CONC 34.9 g/dl (32.0-36.5); MEAN CORPUSCULAR VOLUME 89.8 fl (80.0-96.0); MONO # 0.5 10^3/uL (0.0-0.8); MONO % 8.8 % (2.0-8.0); NEUTROPHILS # 3.3 10^3/uL (1.5-8.5); NEUTROPHILS % 53.5 % (36.0-66.0); PLATELET COUNT, AUTOMATED 122 10^3/uL (150-450); RED BLOOD COUNT 4.82 10^6/uL (4.30-6.10); WHITE BLOOD COUNT 6.1 10^3/uL (4.0-10.0)
[2023-11-01 21:12] LABS: ABG BASE EXCESS 1.8 (-2.0-2.0); ABG HCO3 25.5 MMOL/L (22.0-26.0); ABG O2 SATURATION 97.6 % (95.0-99.0); ABG PARTIAL PRESSURE CO2 37.1 mmHg (35.0-45.0); ABG PARTIAL PRESSURE O2 98.2 mmHg (75.0-100.0); ABG STANDARD HCO3 26.1 MMOL/L. (22.0-26.0); ABG TOTAL CO2 26.6 MMOL/L (23.0-31.0); ABG pH (ARTERIAL) 7.455 UNITS (7.350-7.450)
[2023-11-01 21:33] LABS: ETHYL ALCOHOL (ETHANOL) 0.008 % (0.000-0.010)
[2023-11-01 21:35] LABS: DIGOXIN LEVEL < 0.1 NG/ML (0.8-2.0); SALICYLATE LEVEL < 3.0 MG/DL (<30)
[2023-11-01 21:37] LABS: THYROID STIMULATING HORMONE 2.689 uIU/ML (0.55-4.78)
[2023-11-01 21:45] LABS: ALKALINE PHOSPHATASE 164 U/L (46-116); ALT/SGPT 33 U/L (7.0-40); AST/SGOT 59 U/L (<34); BILIRUBIN,DIRECT 0.4 MG/DL (<0.4); BILIRUBIN,TOTAL 1.6 MG/DL (0.3-1.2); BLOOD UREA NITROGEN 23 MG/DL (9-23); CALCIUM LEVEL 8.5 MG/DL (8.3-10.6); CARBON DIOXIDE LEVEL 29 MMOL/L (20-31); CHLORIDE LEVEL 99 MMOL/L (98-107); CREATININE FOR GFR 0.81 MG/DL (0.70-1.30); GLOMERULAR FILTRATION RATE > 60.0 (>35); GLUCOSE, FASTING 425 MG/DL (74-106); MAGNESIUM LEVEL 1.8 MG/DL (1.8-2.4); POTASSIUM SERUM 5.4 MMOL/L (3.5-5.1); SODIUM LEVEL 133 MMOL/L (136-145); TOTAL PROTEIN 6.8 G/DL (5.7-8.2)
[2023-11-01 21:57] LABS: AMPHETAMINES LEVEL URINE NEGATIVE (NEGATIVE); BARBITURATES URINE NEGATIVE (NEGATIVE); BENZODIAZEPINES URINE NEGATIVE (NEGATIVE); CANNABINOIDS URINE NEGATIVE (NEGATIVE); COCAINE METABOLITE URINE NEGATIVE (NEGATIVE); METHADONE URINE NEGATIVE (NEGATIVE); OPIATES URINE NEGATIVE (NEGATIVE); PHENCYCLIDINE URINE NEGATIVE (NEGATIVE)
[2023-11-01] MEDS: HumuLIN R (REGULAR) INSULIN (NovoLIN R) **100U/ML** PER UNIT IV ONE (22:40)
[2023-11-01] MEDS: NS 500 ML IV ONE (23:30)
[2023-11-02] MEDS ORDERED: LANTINJ4 SC (00:51)
[2023-11-02] MEDS ORDERED: FREE1KIT5 XX (00:51)
[2023-11-02] MEDS ORDERED: [UNRECOGNIZED DRUG - OTHER] MC (00:51)
[2023-11-02] MEDS ORDERED: FREE1MIS32 XX (00:51)
[2023-11-02] MEDS ORDERED: METF500T13 PO (00:51)
[2023-11-02 01:00] VITALS: BP 112/72; TEMP 98.1; O2SAT 96
== END 2023-11-02 01:24 | disposition home or self-care (01) ==
LOC: EDBD 20:19 → M ED 20:19
DX: E11.65 Type 2 diabetes mellitus with hyperglycemia (principal); I48.0 Paroxysmal atrial fibrillation; I44.4 Left anterior fascicular block; E78.5 Hyperlipidemia, unspecified; K21.9 Gastro-esophageal reflux disease without esophagitis; Z88.0 Allergy status to penicillin; Z88.1 Allergy status to other antibiotic agents; Z88.2 Allergy status to sulfonamides; Z88.8 Allergy status to other drugs, medicaments and biological substances; Z91.041 Radiographic dye allergy status; Z79.01 Long term (current) use of anticoagulants; Z79.2 Long term (current) use of antibiotics; Z79.899 Other long term (current) drug therapy
CPT/HCPCS: 36600; 51701; 70450; 71045; 80048; 80076; 80143; 80162; 80307; 81001; 82077; 82140; 82803; 83605; 83735; 84443; 85025; 87040; 87486; 87581; 87633; 87798; 93005; 93041; 94760; 96361; 96374; 99285; J1815

== ENCOUNTER → 2023-12-03 | Outpatient (REF) | payer MEDICARE ==
[~2023-12-03] MED LIST changes: +FREE1KIT5 XX; +FREE1MIS32 XX; +LANTINJ4 SC; +METF500T13 PO; +[UNRECOGNIZED DRUG - OTHER] MC
== END ==
LOC: M LAB REF 13:20
PROVIDERS: ATTEND Physician Assistant Medical
DX: J02.9 Acute pharyngitis, unspecified (principal)

== ENCOUNTER → 2024-01-07 | Outpatient (CLI) | payer MEDICARE ==
[2024-01-07 17:58] LABS: FOLATE 15.7 NG/ML (>5.4)
== END ==
LOC: M LAB 16:35
PROVIDERS: ATTEND Otolaryngology
DX: K14.6 Glossodynia (principal); D10.1 Benign neoplasm of tongue; Z79.899 Other long term (current) drug therapy; Z79.01 Long term (current) use of anticoagulants; Z88.1 Allergy status to other antibiotic agents; Z91.041 Radiographic dye allergy status; Z88.4 Allergy status to anesthetic agent; Z88.2 Allergy status to sulfonamides; Z88.8 Allergy status to other drugs, medicaments and biological substances; Z85.820 Personal history of malignant melanoma of skin; Z85.46 Personal history of malignant neoplasm of prostate; Z80.9 Family history of malignant neoplasm, unspecified

== ENCOUNTER → 2024-01-17 | Outpatient (REF) | payer MEDICARE ==
[2024-01-17 17:54] LABS: BASO % 0.6 % (0.0-1.0); EOS # 0.1 10^3/uL (0.0-0.5); EOS % 1.7 % (0.0-3.0); HEMATOCRIT 46.1 % (42.0-52.0); HEMOGLOBIN 15.6 g/dl (13.5-17.5); LYMPH # 1.8 10^3/uL (1.5-5.0); LYMPH % 27.2 % (24.0-44.0); MEAN CORPUSCULAR HGB CONC 33.8 g/dl (32.0-36.5); MEAN CORPUSCULAR VOLUME 94.5 fl (80.0-96.0); MONO # 0.5 10^3/uL (0.0-0.8); MONO % 8.1 % (2.0-8.0); NEUTROPHILS # 4.1 10^3/uL (1.5-8.5); NEUTROPHILS % 62.1 % (36.0-66.0); PLATELET COUNT, AUTOMATED 158 10^3/uL (150-450); RED BLOOD COUNT 4.88 10^6/uL (4.30-6.10); WHITE BLOOD COUNT 6.7 10^3/uL (4.0-10.0)
[2024-01-17 18:01] LABS: ALBUMIN 3.1 G/DL (3.2-5.2); ALKALINE PHOSPHATASE 747 U/L (46-116); ALT/SGPT 85 U/L (7.0-40); AST/SGOT 113 U/L (<34); BILIRUBIN,TOTAL 2.7 MG/DL (0.3-1.2); BLOOD UREA NITROGEN 16 MG/DL (9-23); CALCIUM LEVEL 8.6 MG/DL (8.3-10.6); CARBON DIOXIDE LEVEL 30 MMOL/L (20-31); CHLORIDE LEVEL 103 MMOL/L (98-107); CREATININE FOR GFR 0.81 MG/DL (0.70-1.30); GLOMERULAR FILTRATION RATE > 60.0 (>35); GLUCOSE, FASTING 98 MG/DL (74-106); POTASSIUM SERUM 4.5 MMOL/L (3.5-5.1); SODIUM LEVEL 141 MMOL/L (136-145); TOTAL PROTEIN 6.8 G/DL (5.7-8.2)
[2024-01-17 18:03] LABS: HEMOGLOBIN A1c 6.7 % (4.0-6.0)
[2024-01-17 19:07] LABS: CREATININE, URINE 187.8 MG/DL
[2024-01-17 19:19] LABS: MAU/CREAT RATIO 1015.9 MCG/MG (0.0-30.0)
== END ==
LOC: M SFHCCLAY 10:33
PROVIDERS: ATTEND Internal Medicine Hematology
DX: E11.65 Type 2 diabetes mellitus with hyperglycemia (principal)

== ENCOUNTER 2024-01-28 08:04 | Emergency (ER) | payer MEDICARE ==
[~2024-01-28] VITALS: Ht 188 cm; Wt 95.5 kg
[~2024-01-28 08:04] MED LIST changes: +BUPR-597 PO; -BUPR300T92 PO; +DOXY-323 PO; -DOXY-443 PO
[2024-01-28] MEDS ORDERED: OMEP40CA5 PO (08:17)
[2024-01-28] MEDS ORDERED: FURO40TA2 PO (08:17)
[2024-01-28] MEDS ORDERED: CELE0.09 PO (08:17)
[2024-01-28] MEDS ORDERED: GNPTAB37 PO (08:17)
[2024-01-28 09:06] LABS: BASO # 0.1 10^3/uL (0.0-0.2); BASO % 0.7 % (0.0-1.0); EOS # 0.1 10^3/uL (0.0-0.5); EOS % 1.8 % (0.0-3.0); HEMOGLOBIN 15.1 g/dl (13.5-17.5); LYMPH # 1.1 10^3/uL (1.5-5.0); LYMPH % 16.5 % (24.0-44.0); MEAN CORPUSCULAR HEMOGLOBIN 32.4 pg (27.0-33.0); MEAN CORPUSCULAR VOLUME 90.1 fl (80.0-96.0); MONO # 0.6 10^3/uL (0.0-0.8); MONO % 9.4 % (2.0-8.0); NEUTROPHILS # 4.8 10^3/uL (1.5-8.5); NEUTROPHILS % 70.9 % (36.0-66.0); PLATELET COUNT, AUTOMATED 182 10^3/uL (150-450); RED BLOOD COUNT 4.66 10^6/uL (4.30-6.10); WHITE BLOOD COUNT 6.8 10^3/uL (4.0-10.0)
[2024-01-28 10:01] LABS: ALBUMIN 2.5 G/DL (3.2-5.2); ALT/SGPT 176 U/L (7.0-40); AST/SGOT 237 U/L (<34); BILIRUBIN,DIRECT 7.7 MG/DL (<0.4); BILIRUBIN,TOTAL 10.6 MG/DL (0.3-1.2); BLOOD UREA NITROGEN 22 MG/DL (9-23); CALCIUM LEVEL 8.7 MG/DL (8.3-10.6); CARBON DIOXIDE LEVEL 28 MMOL/L (20-31); CHLORIDE LEVEL 104 MMOL/L (98-107); CREATININE FOR GFR 0.84 MG/DL (0.70-1.30); GLOMERULAR FILTRATION RATE > 60.0 (>35); GLUCOSE, FASTING 105 MG/DL (74-106); POTASSIUM SERUM 4.1 MMOL/L (3.5-5.1); SODIUM LEVEL 140 MMOL/L (136-145); TOTAL PROTEIN 6.8 G/DL (5.7-8.2)
[2024-01-28 10:21] LABS: ALKALINE PHOSPHATASE 1304 U/L (46-116)
[2024-01-28] MEDS ORDERED: NYST10006 TOP (11:59)
[2024-01-28] MEDS ORDERED: QUET50TA4 PO (11:59)
[2024-01-28] MEDS ORDERED: GNP250TA9 PO (11:59)
[2024-01-28] MEDS ORDERED: METF-838 PO (11:59)
[2024-01-28] MEDS ORDERED: EQL50TAB2 PO (11:59)
[2024-01-28] MEDS ORDERED: ELIQ2.5T PO (11:59)
[2024-01-28] MEDS ORDERED: LANTINJ4 SC (11:59)
[2024-01-28] MEDS ORDERED: D200CAP3 PO (11:59)
[2024-01-28] MEDS ORDERED: TACR0.1O TOP (11:59)
[2024-01-28] MEDS ORDERED: ALPH600C PO (11:59)
[2024-01-28] MEDS ORDERED: CHEL50TA3 PO (11:59)
[2024-01-28] MEDS ORDERED: LACT20EL PO (11:59)
[2024-01-28] MEDS ORDERED: HOME MED LIST COMPLETE! XX SCH (12:05)
[2024-01-28] MEDS: NS 1,000 ML IV SCH (12:51)
[2024-01-28 13:13] LABS: INR 1.56; PARTIAL THROMBOPLASTIN TIME 29.1 SECONDS (24.8-34.2); PROTHROMBIN TIME 18.2 SECONDS (12.5-14.5)
[2024-01-28] MEDS: methylPREDNISolone 125MG 2ML VIAL IV ONE (14:38)
[2024-01-28] MEDS: diphenhydrAMINE 50MG/ML VIAL IV STA (14:38)
[2024-01-28] MEDS ORDERED: ISOVUE-370 76% 100ML VIAL As Ordered ONE (18:11)
[2024-01-28 19:37] VITALS: BP 109/67; TEMP 98.8; O2SAT 98
== END 2024-01-28 19:41 | disposition short-term general hospital (02) ==
LOC: M ED 08:04
DX: K86.9 Disease of pancreas, unspecified (principal); K83.1 Obstruction of bile duct; E11.9 Type 2 diabetes mellitus without complications; I10 Essential (primary) hypertension; I48.91 Unspecified atrial fibrillation; C61 Malignant neoplasm of prostate; Z87.441 Personal history of nephrotic syndrome; K75.81 Nonalcoholic steatohepatitis (NASH); M54.50 Low back pain, unspecified; Z90.89 Acquired absence of other organs; Z79.01 Long term (current) use of anticoagulants; Z88.0 Allergy status to penicillin; Z88.1 Allergy status to other antibiotic agents; Z88.2 Allergy status to sulfonamides; Z88.8 Allergy status to other drugs, medicaments and biological substances; Z91.041 Radiographic dye allergy status; Z79.899 Other long term (current) drug therapy
CPT/HCPCS: 36415; 74177; 76705; 80048; 80076; 82140; 83690; 85025; 85610; 85730; 96361; 96374; 96375; 99285; J1200; J2919; Q9967